=== PATIENT | female | born 1970 | race Caucasian/White ===

== ENCOUNTER 2025-02-03 23:08 | Emergency (ER) | payer SELFPAY ==
--- OUTSIDE RECORDS SUMMARY | 2025-02-03 23:36 | XMS REPORT | Continuity of Care Document ---
Author Name Unknown Address [address] [facility] [place] [address] Organization [facility] [place] Address [address] [facility] [address] [place] [address] Care Team Providers Care Marketing Research Coordinator Name Role Phone PCP, PATIENT DOES NOT HAVE A Primary Care Physic segun Unavailable Addison Rocha Attending Clinician Unavailable ELZA PATEL Attending Clinician Unavailable CHRETIEN_F Attending Clinician Unavailable Benton Monroy Attending Clinician [phone] PATRIZIA HOWARD Attending Clinician Unavailable ELSA Attending Clinician Unavailable Addison Rocha Admitting Clinician Unavailable Physician, No Primary or Family Admitting Clinic segun Unavailable CHRETIEN_F Admitting Clinician Unavailable ELSA Admitting Clinician Unavailable Payers Payer Name Policy Type Policy Number Effective Date Expirati on Date Source [place] [id number] 2021 00:00:00 2021 00:00:00 Allergies, Adverse Reactions, Alerts Allergy Name Allergy Type Status Severity Reaction(s) Onset Date Inactive Date Treating Clinician Comments Source No Known Allergie s DA Active U 11-22 00:00: 00 [facility] NO KNOWN ALLERGIE S Drug Class Active [facility] Social History Social Habit Start Date Stop Date Quantity Comments Source ASSERTION Possible [facility] Sexual orientation [facility] Sex 2025-01-16 23:55:02 2025-01-16 23:55:02 Female (finding) [facility] Sex assigned at 1970 00:00:00 1970 00:00:00 [facility] Smoking Status Start Date Stop Date Source Current Every Day Smoker [facility] Medications Ordered Medication Name Filled Medication Name Start Date Stop Date Current Medication? Ordering Clinician Indication Dosage Frequency Signature (SIG) Comments Components Source albuterol sulfate HFA 90 mcg/actuati on aerosol inhaler Take 2 puffs Q4-6 daily albuterol sulfate HFA 90 mcg/actuati on aerosol inhaler Take 2 puffs Q4-6 daily No albuterol sulfate HFA 90 mcg/actuat ion aerosol inhaler Take 2 puffs Q4-6 daily [facility] amoxicillin 875 mg-potassiu m clavulanate 125 mg tablet Take 1 tablet every 12 hours by oral route for 10 days. amoxicillin 875 mg-potassiu m clavulanate 125 mg tablet Take 1 tablet every 12 hours by oral route for 10 days. No 1 Q12H amoxicilli n 875 mg-potassi um clavulanat e 125 mg tablet Take 1 tablet every 12 hours by oral route for 10 days. [facility] bupropion HCl SR 150 mg tablet,12 hr sustained-r elease Take 1 tablet BID PO bupropion HCl SR 150 mg tablet,12 hr sustained-r elease Take 1 tablet BID PO No bupropion HCl SR 150 mg tablet,12 hr sustained- release Take 1 tablet BID PO [facility] prednisone 10 mg tablet Take 1 tablet daily by mouth prednisone 10 mg tablet Take 1 tablet daily by mouth No prednisone 10 mg tablet Take 1 tablet daily by mouth [facility] Trelegy Ellipta 100 mcg-62.5 mcg-25 mcg powder for inhalation Inhale 1 puff every day Trelegy Ellipta 100 mcg-62.5 mcg-25 mcg powder for inhalation Inhale 1 puff every day No Trelegy Ellipta 100 mcg-62.5 mcg-25 mcg powder for inhalation Inhale 1 puff every day [facility] Vital Signs Vital Name Observation Time Observation Value Comments S ource BP Diastolic 2021-10-07 00:00:00 76 mm[Hg] [facility] Height 2021-10-07 00:00:00 64 [in_i] [facility] BMI (Body Mass Index) 2021-10-07 00:00:00 24.9 kg/m2 [facility] BP Systolic 2021-10-07 00:00:00 132 mm[Hg] [facility] Body Weight 2021-10-07 00:00:00 2320 [oz_av] [facility] Encounters Start Date/Time End Date/Time Encounter Type Admission Type Attending Clinicians Care Facility Care Department Encounter ID Source 2023-06-07 11:15:01 Outpatient STLMLC STLMLC [id number] 2024-12-25 15:53:25 2024-12-25 15:53:25 Outpatient SFA SFA [id number] Gabriel Eduardo 2024-11-22 06:48:00 2024-11-29 12:31:00 Inpatient EM Addison Rocha HCAPM INTE.02 [id number] [facility] 2024-11-22 07:23:00 2024-11-22 07:23:00 Outpatient Addison Rocha HCACL LABO [id number] [facility] 2024-04-19 13:30:00 2024-04-19 13:30:00 Outpatient ELZA RIVERO [facility] [id number] [facility] 2024-04-12 14:30:00 2024-04-12 14:30:00 Outpatient ELZA RIVERO [facility] [id number] [facility] 2024-04-05 14:15:00 2024-04-05 14:15:00 Outpatient ELZA RIVERO [facility] [id number] [facility] 2021-10-07 00:00:00 2021-10-07 00:00:00 Outpatient Benton Monroy [facility] [id number] 2021-10-07 00:00:00 2021-10-07 00:00:00 Benton Monroy, DO: [address], [place] [phone] , Ph. [facility] [place] [facility], DR[address] MONROY [id number] [facility] 2021-10-07 00:00:00 2021-10-07 00:00:00 Outpatient Benton Monroy [facility] [id number] 2021-09-27 11:00:00 2021-09-27 11:00:00 Outpatient R [facility] [id number] [facility] 2021-09-27 11:00:00 2021-09-27 11:00:00 Outpatient R PATRIZIA HOWARD [facility] [id number] [facility] Results Test Description Test Time Test Comments Results Result Co mments Source CBC W/AUTO [id number] 15:07:00* Test Item Value Reference Range Interpretation Comme nts WHITE BLOOD CELL (test code = WBC) 12.1 K/mm3 3.5-11.0 H RED BLOOD CELL (test code = RBC) 4.91 M/mm3 4.70-6.10 N HEMOGLOBIN (test code = HGB) 15.0 G/DL 10.4-14.9 H HEMATOCRIT (test code = HCT) 48.8 % 31.5-44.1 H MEAN CELL VOLUME (test code = MCV) 99.4 Fl 84.5-98.6 H MEAN CELL HGB (test code = MCH) 30.5 pg 27.0-34.2 N MEAN CELL HGB CONCETRATION (test code = MCHC) 30.7 G/DL 31.5-34.0 L RED CELL DISTRIBUTION WIDTH (test code = RDW) 13.0 SD 11.5-14.5 N PLATELET COUNT (test code = PLT) 232 K/mm3 150-450 N MEAN PLATELET VOLUME (test c ode = MPV) 9.50 fL 7.0-10.5 N NEUTROPHIL % (test code = NT%) 87.1 % 40-76 H IMMATURE GRANULOCYTE % (test code = IG%) 2.3 % 0.0-5.0 N LYMPHOCYTE % (test code = LY%) 7.3 % 20.5-51.1 L MONOCYTE % (test code = MO%) 3.0 % 1.7-9.3 N EOSINOPHIL % (test code = EO%) 0.0 % 0.0-6.0 N BASOPHIL % (test code = BA%) 0.3 % 0.0-2.0 N NUCLEATED RBC % (test code = NRBC%) 0.0 /100WBC% 0.0-1.0 N NEUTROPHIL # (test code = NT#) 10.6 K/mm3 1.8-7.6 H IMMATURE GRANULOCYTE # (test code = IG#) 0.28 x10 3/uL 0.00-0.03 H LYMPHOCYTE # (test code = LY#) 0.9 K/mm3 0.6-3.2 N MONOCYTE # (test code = MO#) 0.4 K/mm3 0.3-1.1 N EOSINOPHIL # (test code = EO#) 0.0 K/mm3 0.0-0.4 N BASOPHIL # (test code = BA#) 0.0 K/mm3 0.0-0.1 N NUCLEATED RBC # (test code = NRBC#) 0.0 K/mm3 0.0-0.1 N MANUAL DIFF REQUIRED (test c ode = MDIFF) NO DIFF/SCN CRITERIA PaO2/[id number] 13:49:00* Test Item Value Reference Range Interpretation Comme nts PaO2/FiO2 (test code = [id number]) 172.2 mm/Hg See_Comment L [Automated mess age] The system which generated this result transmitted reference range: 200. The reference range was not used to interpret this result as normal/abnormal. [id number] 13:49:00* Test Item Value Reference Range Interpretation Comme nts ARTERIAL BLOOD GAS PH (test code = PHA) 7.42 pH units 7.35-7.45 N ARTERIAL BLOOD GAS PCO2 (test code = PCO2A) 63 mmHg 35-45 H ARTERIAL BLOOD GAS PO2 (test code = PO2A) 62 mmHg 80-100 L BICARBONATE TOTAL HCO3 (test code = HCO3) 40.1 mmol/L 22.0-26.0 H BASE EXCESS (test code = ALEXANDRE) 12.3 mmol/L -3.0-3.0 H ABG O2 SATURATION (test code = SATA) 93 % 90-100 N FIO2 (test code = FIO2A) 36 % (calc) 21-100 N ABG DELIVERY (test code = IRVIN) N/C Descript ABG SITE (test code = SITEA) Left Radial ARTKIT DESCRIPTION MODIFIED CHAI'S (test code = MODALL) Yes Circ.CHK POSITIVE TOTAL HGB (test code = THB) 16.4 GRAM/DL 12.0-18.0 N HGB O2 SAT (test code = HBOSAT) 91.9 % (linda) 95.0-100.0 L CARBOXYHEMOGLOBIN (test code = HOHGBT) 0.7 % 0.5-1.5 N METHEMOGLOBIN (test code = METHGB) 0.1 % 0.0-0.0 H COMPREHENSIVE METABOLIC [id number] 12:25:00* Test Item Value Reference Range Interpretation Comme nts SODIUM (test code = NA) 144 mmol/L 136-145 N POTASSIUM (test code = K) 4.5 mmol/L 3.4-5.0 N CHLORIDE (test code = CL) 100 mmol/L 98-107 N CARBON DIOXIDE (test code = CO2) 45 mmol/L 21-32 HH RESULTS CALLED TO KARINA.ROBEAD BACK & CONFIRMED? [facility] LYolandaLAB.B 11/25/24 1215 mmol/L ANION GAP (test code = GAP) -1 GAP calc 4-15 L GLUCOSE (test code = GLU) 130 MG/DL 70-110 H BLOOD UREA NITROGEN (test code = BUN) 22 MG/DL 7-18 H GLOMERULAR FILTRATION RATE (test code = GFR) >=60 max estimate estGFR >60 The Glomerular Filtration Rate is a calculated parameterbased on serum Creatinine, patient age and sex. GFR valuesless than 60 mL/min/1.73 square meters are indicative ofChronic Kidney Disease. Values less than 15 mL/min/1.73square meters indicate Kidney failure. The calculation forGFR is based on the CKD-EPI (2020) calculation. This formulais race indifferent and is the recommended formula for GFRby the National Kidney Foundation for Adults.The GFR will not calculate if the sex is unknown or if thepatient's age is <18 years. CREATININE (test code = CREAT) 0.6 MG/DL 0.6-1.0 N TOTAL PROTEIN (test code = PROT) 6.4 G/DL 6.4-8.2 N ALBUMIN (test code = ALB) 2.5 G/DL 3.4-5.0 L GLOBULIN (test code = GLOB) 3.9 GM/dL ALBUMIN/GLOBULIN RATIO (test code = A/G) 0.6 RATIO 1.2-2.2 L CALCIUM (test code = CA) 9.7 MG/DL 8.5-10.1 N BILIRUBIN TOTAL (test code = BILT) 0.3 MG/DL 0.0-1.0 N SGOT/AST (test code = AST) 25 Unit/L 15-37 N SGPT/ALT (test code = ALT) 84 Unit/L 30-65 H ALKALINE PHOSPHATASE TOTAL (test code = ALKP) 65 Unit/L 50-136 N Vancomycin [id number] 10:01:00* Test Item Value Reference Range Interpretation Comme nts Vancomycin AUC2 (test code = VANCAUC2) 6.5 mcg/mL 10-20 L Vancomycin [id number] 01:32:00* Test Item Value Reference Range Interpretation Comme nts Vancomycin AUC1 (test code = VANCAUC1) 23.0 mcg/mL 20-60 N [id number] 01:25:00* Test Item Value Reference Range Interpretation Comme nts CREATININE (test code = CREAT) 0.6 MG/DL 0.6-1.0 N PaO2/[id number] 09:36:00* Test Item Value Reference Range Interpretation Comme nts PaO2/FiO2 (test code = [id number]) 159.0 mm/Hg See_Comment L [Automated mess age] The system which generated this result transmitted reference range: 200. The reference range was not used to interpret this result as normal/abnormal. [id number] 09:36:00* Test Item Value Reference Range Interpretation Comme nts ARTERIAL BLOOD GAS PH (test code = PHA) 7.22 pH units 7.35-7.45 LL ARTERIAL BLOOD GAS PCO2 (test code = PCO2A) 82 mmHg 35-45 HH ARTERIAL BLOOD GAS PO2 (test code = PO2A) 159 mmHg 80-100 H BICARBONATE TOTAL HCO3 (test code = HCO3) 32.8 mmol/L 22.0-26.0 H BASE EXCESS (test code = ALEXANDRE) 2.0 mmol/L -3.0-3.0 N ABG O2 SATURATION (test code = SATA) 99 % 90-100 N FIO2 (test code = FIO2A) 100 % (calc) 21-100 N ABG DELIVERY (test code = IRVIN) NRBMASK Descript ABG SITE (test code = SITEA) Right Radial ARTKIT DESCRIPTION MODIFIED CHAI'S (test code = MODALL) Yes Circ.CHK POSITIVE TOTAL HGB (test code = THB) 16.3 GRAM/DL 12.0-18.0 N HGB O2 SAT (test code = HBOSAT) 98.1 % (linda) 95.0-100.0 N CARBOXYHEMOGLOBIN (test code = HOHGBT) 0.5 % 0.5-1.5 N METHEMOGLOBIN (test code = METHGB) 0.4 % 0.0-0.0 H PaO2/[id number] 09:36:00* Test Item Value Reference Range Interpretation Comme nts PaO2/FiO2 (test code = [id number]) 176.0 mm/Hg See_Comment L [Automated mess age] The system which generated this result transmitted reference range: 200. The reference range was not used to interpret this result as normal/abnormal. [id number] 09:36:00* Test Item Value Reference Range Interpretation Comme nts ARTERIAL BLOOD GAS PH (test code = PHA) 7.32 pH units 7.35-7.45 L ARTERIAL BLOOD GAS PCO2 (test code = PCO2A) 53 mmHg 35-45 H ARTERIAL BLOOD GAS PO2 (test code = PO2A) 88 mmHg 80-100 N BICARBONATE TOTAL HCO3 (test code = HCO3) 26.8 mmol/L 22.0-26.0 H BASE EXCESS (test code = ALEXANDRE) -0.5 mmol/L -3.0-3.0 N ABG O2 SATURATION (test code = SATA) 96 % 90-100 N FIO2 (test code = FIO2A) 50 % (calc) 21-100 N ABG DELIVERY (test code = IRVIN) NIV Descript ABG VENT MODE (test code = MODEA) BiPAP Descript Vent Mode ABG PEEP (test code = PEEPA) 8.0 cm H20 0.0-99.9 ABG PRESSURE SUPPORT (test code = PSABG) 14.0 cm H20 See_Comment [Automated message] The system which generated this result transmitted reference range: 0-. The reference range was not used to interpret this result as normal/abnormal. ABG SITE (test code = SITEA) Right Radial ARTKIT DESCRIPTION MODIFIED CHAI'S (test code = MODALL) Yes Circ.CHK POSITIVE TOTAL HGB (test code = THB) 18.3 GRAM/DL 12.0-18.0 H HGB O2 SAT (test code = HBOSAT) 95.7 % (linda) 95.0-100.0 N CARBOXYHEMOGLOBIN (test code = HOHGBT) 0.2 % 0.5-1.5 L METHEMOGLOBIN (test code = METHGB) 0.3 % 0.0-0.0 H UA RFLX MICR CULT IF [id number] 06:22:00* Test Item Value Reference Range Interpretation Comme nts UA COLOR (test code = COLU) Yellow YELLOW UA APPEARANCE (test code = APPU) CLEAR CLEAR UA GLUCOSE DIPSTICK (test code = DGLUU) 1+ mg/dL NEGATIVE UA BILIRUBIN DIPSTICK (test code = BILU) Negative NEGATIVE UA KETONE DIPSTICK (test code = KETU) Negative NEGATIVE UA SPECIFIC GRAVITY (test code = SGU) >=1.030 1.005-1.015 A UA BLOOD DIPSTICK (test code = APOLLO) Negative NEGATIVE UA PH DIPSTICK (test code = OLIVIA) 6.0 5.0-7.0 UA PROTEIN DIPSTICK (test code = PROU) 2+ mg/dL NEGATIVE UA UROBILINIOGEN DIPSTICK (test code = URO) 0.2 EU/dL See_Comment [Automated message] The system which generated this result transmitted reference range: <2.0 EU/dL. The reference range was not used to interpret this result as normal/abnormal. UA NITRITE DIPSTICK (test code = ALBA) Negative NEGATIVE UA LEUKOCYTE ESTERASE DIPSTICK (test code = LEUU) Negative NEGATIVE UA WBC (test code = WBCU) 1-3 #WBC/HPF 0-3 UA RBC (test code = RBCU) 1-3 #RBC/HPF 0-3 UA BACTERIA (test code = BACU) TRACE /HPF NONE-TRACE UA SQUAMOUS CELLS (test code = SQU) TRACE /HPF NONE UA TRIPLE PHOSPHATE CRYSTALS (test code = TRPHOSU) TRACE /HPF NONE-TRACE UA AMORPHOUS SEDIMENT (test code = AMORU) TRACE NONE SEEN UA CULTURE NEEDED? (test code = UACULT) NO, WBC<10 Criteria Culture CHK Indication for culture: Dysuria/FrequencySOURCE OF URINE: CLEAN CATCHDRUGS OF ABUSE SCREEN [id number] 05:56:00* Test Item Value Reference Range Interpretation Comme nts URN COCAINE (test code = COCAURN) NEGATIVE SCcutoff See_Comment UNCONFIRMED SCREENING RESULTS SHOULD NOT BE USED FORNON-MEDICAL PURPOSES. [Automated message] The system which generated this result transmitted reference range: <300 NG/ML. The reference range was not used to interpret this result as normal/abnormal. URN CANNABINOIDS (test code = CANNABURN) NEGATIVE SCcutoff See_Comment UNCONFIRMED SCREENING RESULTS SHOULD NOT BE USED FORNON-MEDICAL PURPOSES. [Automated message] The system which generated this result transmitted reference range: <50 NG/ML. The reference range was not used to interpret this result as normal/abnormal. URN AMPHETAMINE (test code = AMPHETURN) NEGATIVE SCcutoff See_Comment UNCONFIRMED SCREENING RESULTS SHOULD NOT BE USED FORNON-MEDICAL PURPOSES. [Automated message] The system which generated this result transmitted reference range: <1000 NG/ML. The reference range was not used to interpret this result as normal/abnormal. URN BARBITURATE (test code = BARBITURN) NEGATIVE SCcutoff See_Comment UNCONFIRMED SCREENING RESULTS SHOULD NOT BE USED FORNON-MEDICAL PURPOSES. [Automated message] The system which generated this result transmitted reference range: <200 NG/ML. The reference range was not used to interpret this result as normal/abnormal. URN BENZODIAZEPINE (test code = BENZOURN) NEGATIVE SCcutoff See_Comment UNCONFIRMED SCREENING RESULTS SHOULD NOT BE USED FORNON-MEDICAL PURPOSES. [Automated message] The system which generated this result transmitted reference range: <200 NG/ML. The reference range was not used to interpret this result as normal/abnormal. URN OPIATES (test code = OPIATURN) NEGATIVE SCcutoff See_Comment UNCONFIRMED SCREENING RESULTS SHOULD NOT BE USED FORNON-MEDICAL PURPOSES. [Automated message] The system which generated this result transmitted reference range: <300 NG/ML. The reference range was not used to interpret this result as normal/abnormal. URN PHENCYCLIDINE (PCP) (test code = PHENCURN) NEGATIVE SCcutoff See_Comment UNCONFIRMED SCREENING RESULTS SHOULD NOT BE USED FORNON-MEDICAL PURPOSES. [Automated message] The system which generated this result transmitted reference range: <25 NG/ML. The reference range was not used to interpret this result as normal/abnormal. URN METHADONE (test code = METHAURN) NEGATIVE SCcutoff See_Comment UNCONFIRMED SCREENING RESULTS SHOULD NOT BE USED FORNON-MEDICAL PURPOSES. [Automated message] The system which generated this result transmitted reference range: <300 NG/ML. The reference range was not used to interpret this result as normal/abnormal. COMPREHENSIVE METABOLIC [id number] 17:47:00* Test Item Value Reference Range Interpretation Comme nts SODIUM (test code = NA) 145 mmol/L 136-145 N POTASSIUM (test code = K) 5.0 mmol/L 3.4-5.0 N CHLORIDE (test code = CL) 105 mmol/L 98-107 N CARBON DIOXIDE (test code = CO2) 37 mmol/L 21-32 H ANION GAP (test code = GAP) 3 GAP calc 4-15 L GLUCOSE (test code = GLU) 212 MG/DL 70-110 H BLOOD UREA NITROGEN (test code = BUN) 32 MG/DL 7-18 H GLOMERULAR FILTRATION RATE (test code = GFR) >=60 max estimate estGFR >60 The Glomerular Filtration Rate is a calculated parameterbased on serum Creatinine, patient age and sex. GFR valuesless than 60 mL/min/1.73 square meters are indicative ofChronic Kidney Disease. Values less than 15 mL/min/1.73square meters indicate Kidney failure. The calculation forGFR is based on the CKD-EPI (202) calculation. This formulais race indifferent and is the recommended formula for GFRby the National Kidney Foundation for Adults.The GFR will not calculate if the sex is unknown or if thepatient's age is <18 years. CREATININE (test code = CREAT) 0.8 MG/DL 0.6-1.0 N TOTAL PROTEIN (test code = PROT) 6.9 G/DL 6.4-8.2 N ALBUMIN (test code = ALB) 2.5 G/DL 3.4-5.0 L GLOBULIN (test code = GLOB) 4.4 GM/dL ALBUMIN/GLOBULIN RATIO (test code = A/G) 0.6 RATIO 1.2-2.2 L CALCIUM (test code = CA) 9.7 MG/DL 8.5-10.1 N BILIRUBIN TOTAL (test code = BILT) 0.2 MG/DL 0.0-1.0 N SGOT/AST (test code = AST) 46 Unit/L 15-37 H SGPT/ALT (test code = ALT) 70 Unit/L 30-65 H ALKALINE PHOSPHATASE TOTAL (test code = ALKP) 69 Unit/L 50-136 N [id number] 17:47:00* Test Item Value Reference Range Interpretation Comme nts PHOSPHOROUS (test code = PHOS) 2.7 MG/DL 2.5-4.9 N [id number] 17:47:00* Test Item Value Reference Range Interpretation Comme nts MAGNESIUM (test code = MAG) 2.0 MG/DL 1.8-2.4 N CBC W/AUTO [id number] 13:43:00* Test Item Value Reference Range Interpretation Comme nts WHITE BLOOD CELL (test code = WBC) 7.8 K/mm3 3.5-11.0 N RED BLOOD CELL (test code = RBC) 5.00 M/mm3 4.70-6.10 N HEMOGLOBIN (test code = HGB) 15.2 G/DL 10.4-14.9 H HEMATOCRIT (test code = HCT) 49.9 % 31.5-44.1 H MEAN CELL VOLUME (test code = MCV) 99.8 Fl 84.5-98.6 H MEAN CELL HGB (test code = MCH) 30.4 pg 27.0-34.2 N MEAN CELL HGB CONCETRATION (test code = MCHC) 30.5 G/DL 31.5-34.0 L RED CELL DISTRIBUTION WIDTH (test code = RDW) 13.6 SD 11.5-14.5 N PLATELET COUNT (test code = PLT) 208 K/mm3 150-450 N MEAN PLATELET VOLUME (test c ode = MPV) 9.80 fL 7.0-10.5 N NEUTROPHIL % (test code = NT%) 81.8 % 40-76 H IMMATURE GRANULOCYTE % (test code = IG%) 0.9 % 0.0-5.0 N LYMPHOCYTE % (test code = LY%) 11.6 % 20.5-51.1 L MONOCYTE % (test code = MO%) 5.4 % 1.7-9.3 N EOSINOPHIL % (test code = EO%) 0.0 % 0.0-6.0 N BASOPHIL % (test code = BA%) 0.3 % 0.0-2.0 N NUCLEATED RBC % (test code = NRBC%) 0.0 /100WBC% 0.0-1.0 N NEUTROPHIL # (test code = NT#) 6.4 K/mm3 1.8-7.6 N IMMATURE GRANULOCYTE # (test code = IG#) 0.07 x10 3/uL 0.00-0.03 H LYMPHOCYTE # (test code = LY#) 0.9 K/mm3 0.6-3.2 N MONOCYTE # (test code = MO#) 0.4 K/mm3 0.3-1.1 N EOSINOPHIL # (test code = EO#) 0.0 K/mm3 0.0-0.4 N BASOPHIL # (test code = BA#) 0.0 K/mm3 0.0-0.1 N NUCLEATED RBC # (test code = NRBC#) 0.0 K/mm3 0.0-0.1 N MANUAL DIFF REQUIRED (test c ode = MDIFF) NO DIFF/SCN CRITERIA TROP-I HIGH [id number] 21:59:00* Test Item Value Reference Range Interpretation Comme nts TROP-I HIGH SENSITIVITY (test code = TROPIHS) 77.5 ng/L 0-54 H CAUTION: Units o f the current test methodology (ng/L) differfrom the prior test methodology (ng/mL) by a factor of 1000. 99th Percentile Upper Reference Limit (URL):Females: 54 ng/LMales: 79 ng/L In order to distinguish acute elevations of high sensitivitytroponin from other clinical conditions, the FourthUniversal Definition of Myocardial Infarction stressesclinical assessment and the demonstration of a rise and/orfall in serial troponin results above the URL. Results from different methodologies should not be comparedto one another as quantitative results and URLs may varyby method. ARTERIAL BLOOD [id number] 21:13:00* Test Item Value Reference Range Interpretation Comme nts ARTERIAL BLOOD GAS PH (test code = PHA) 7.22 pH units 7.35-7.45 LL ARTERIAL BLOOD GAS PCO2 (test code = PCO2A) 79 mmHg 35-45 HH ARTERIAL BLOOD GAS PO2 (test code = PO2A) 81 mmHg 80-100 N BICARBONATE TOTAL HCO3 (test code = HCO3) 31.6 mmol/L 22.0-26.0 H BASE EXCESS (test code = ALEXANDRE) 1.2 mmol/L -3.0-3.0 N ABG O2 SATURATION (test code = SATA) 93 % 90-100 N FIO2 (test code = FIO2A) 70 % (calc) 21-100 N ABG DELIVERY (test code = IRVIN) N/C Descript ABG SITE (test code = SITEA) Left Radial ARTKIT DESCRIPTION MODIFIED CHAI'S (test code = MODALL) Yes Circ.CHK POSITIVE PaO2/[id number] 21:13:00* Test Item Value Reference Range Interpretation Comme [facility] PaO2/FiO2 (test code = [id number]) 115.7 mm/Hg See_Comment L [Automated mess age] The system which generated this result transmitted reference range: 200. The reference range was not used to interpret this result as normal/abnormal. COVID 19 Asymptomatic IH [id number] 17:13:00* Test Item Value Reference Range Interpretation Comme nts COVID 19 Asymptomatic IH AG (test code = COVNONPUIAG) NEGATIVE Negative Per housefellow , negative results should be treated aspresumptive and, if inconsistent with clinical signs andsymptoms or necessary for patient management, should betested with an alternative molecular assay. Negative resultsdo not preclude SARS-CoV-2 infection and should not be usedas the sole basis for patient management decisions. Negative results should be considered in the context of apatient's recent exposures, history, presence of clinicalsigns and symptoms consistent with COVID-19. TROP-I HIGH [id number] 10:40:00* Test Item Value Reference Range Interpretation Comme nts TROP-I HIGH SENSITIVITY (test code = TROPIHS) 180.1 ng/L 0-54 HH RESULTS CALLED Sahra LORENZOREAD BACK & CONFIRMED? [facility] 11/22/24 1031CAUTION: Units of the current test methodology (ng/L) differfrom the prior test methodology (ng/mL) by a factor of 1000. 99th Percentile Upper Reference Limit (URL):Females: 54 ng/LMales: 79 ng/L In order to distinguish acute elevations of high sensitivitytroponin from other clinical conditions, the FourthUniversal Definition of Myocardial Infarction stressesclinical assessment and the demonstration of a rise and/orfall in serial troponin results above the URL. Results from different methodologies should not be comparedto one another as quantitative results and URLs may varyby method. LACTIC [id number] 09:26:00* Test Item Value Reference Range Interpretation Comme nts LACTIC ACID (test code = LACT) 1.6 mmol/L 0.4-1.9 N CBC W/AUTO [id number] 07:01:00* Test Item Value Reference Range Interpretation Comme nts WHITE BLOOD CELL (test code = WBC) 12.0 K/mm3 3.5-11.0 H RED BLOOD CELL (test code = RBC) 5.55 M/mm3 4.70-6.10 N HEMOGLOBIN (test code = HGB) 17.1 G/DL 10.4-14.9 H HEMATOCRIT (test code = HCT) 54.1 % 31.5-44.1 H MEAN CELL VOLUME (test code = MCV) 97.5 Fl 84.5-98.6 N MEAN CELL HGB (test code = MCH) 30.8 pg 27.0-34.2 N MEAN CELL HGB CONCETRATION (test code = MCHC) 31.6 G/DL 31.5-34.0 N RED CELL DISTRIBUTION WIDTH (test code = RDW) 14.0 SD 11.5-14.5 N PLATELET COUNT (test code = PLT) 220 K/mm3 150-450 N MEAN PLATELET VOLUME (test code = MPV) 10.10 fL 7.0-10.5 N NEUTROPHIL % (test code = NT%) 94.2 % 40-76 H IMMATURE GRANULOCYTE % (test code = IG%) 0.3 % 0.0-5.0 N LYMPHOCYTE % (test code = LY%) 3.6 % 20.5-51.1 L MONOCYTE % (test code = MO%) 1.8 % 1.7-9.3 N EOSINOPHIL % (test code = EO%) 0.0 % 0.0-6.0 N BASOPHIL % (test code = BA%) 0.1 % 0.0-2.0 N NUCLEATED RBC % (test code = NRBC%) 0.0 /100WBC% 0.0-1.0 N NEUTROPHIL # (test code = NT#) 11.3 K/mm3 1.8-7.6 H IMMATURE GRANULOCYTE # (test code = IG#) 0.04 x10 3/uL 0.00-0.03 H LYMPHOCYTE # (test code = LY#) 0.4 K/mm3 0.6-3.2 L MONOCYTE # (test code = MO#) 0.2 K/mm3 0.3-1.1 L EOSINOPHIL # (test code = EO#) 0.0 K/mm3 0.0-0.4 N BASOPHIL # (test code = BA#) 0.0 K/mm3 0.0-0.1 N NUCLEATED RBC # (test code = NRBC#) 0.0 K/mm3 0.0-0.1 N MANUAL DIFF REQUIRED (test code = MDIFF) NO DIFF/SCN CRITERIA SLIDE REVIEW CONSISTANT WITH AUTO DIFFERENTIAL. LACTIC [id number] 06:50:00* Test Item Value Reference Range Interpretation Comme nts LACTIC ACID (test code = LACT) 2.5 mmol/L 0.4-1.9 HH RESULTS CALLED Sahra ZENGREAD BACK & CONFIRMED? YESVERONICA L.[facility] 11/22/24 0645 BASIC METABOLIC [id number] 06:46:00* Test Item Value Reference Range Interpretation Comme nts SODIUM (test code = NA) 143 mmol/L 136-145 N POTASSIUM (test code = K) 5.0 mmol/L 3.4-5.0 N CHLORIDE (test code = CL) 101 mmol/L 98-107 N CARBON DIOXIDE (test code = CO2) 30 mmol/L 21-32 N ANION GAP (test code = GAP) 12 GAP calc 4-15 N GLUCOSE (test code = GLU) 190 MG/DL 70-110 H BLOOD UREA NITROGEN (test code = BUN) 38 MG/DL 7-18 H GLOMERULAR FILTRATION RATE (test code = GFR) 44 estGFR >60 L The Glomerular Filtration Rate is a calculated parameterbased on serum Creatinine, patient age and sex. GFR valuesless than 60 mL/min/1.73 square meters are indicative ofChronic Kidney Disease. Values less than 15 mL/min/1.73square meters indicate Kidney failure. The calculation forGFR is based on the CKD-EPI (2020) calculation. This formulais race indifferent and is the recommended formula for GFRby the National Kidney Foundation for Adults.The GFR will not calculate if the sex is unknown or if thepatient's age is <18 years. CREATININE (test code = CREAT) 1.4 MG/DL 0.6-1.0 H CALCIUM (test code = CA) 9.4 MG/DL 8.5-10.1 N HEPATIC FUNCTION [id number] 06:46:00* Test Item Value Reference Range Interpretation Comme nts TOTAL PROTEIN (test code = PROT) 7.8 G/DL 6.4-8.2 N ALBUMIN (test code = ALB) 2.9 G/DL 3.4-5.0 L BILIRUBIN TOTAL (test code = BILT) 0.5 MG/DL 0.0-1.0 N BILIRUBIN DIRECT (test code = BILD) 0.2 MG/DL 0.0-0.3 N BILIRUBIN INDIRECT (test cod e = BILIND) 0.30 MG/DL 0.2-1.2 N SGOT/AST (test code = AST) 32 Unit/L 15-37 N SGPT/ALT (test code = ALT) 49 Unit/L 30-65 N ALKALINE PHOSPHATASE TOTAL ( test code = ALKP) 83 Unit/L 50-136 N [id number] 06:46:00* Test Item Value Reference Range Interpretation Comme nts LIPASE (test code = LIP) 25 Unit/L 13-75 N NT PRO-BRAIN NATRIURETIC [id number] 06:46:00* Test Item Value Reference Range Interpretation Comme nts NT PRO-BRAIN NATRIURETIC PEP TI (test code = PROBNP) 6560 PG/ML 0-100 H TROP-I HIGH [id number] 06:46:00* Test Item Value Reference Range Interpretation Comme nts TROP-I HIGH SENSITIVITY (test code = TROPIHS) 352.2 ng/L 0-54 HH RESULTS CALLED Sahra ZENGREAD BACK & CONFIRMED? [facility] 11/22/24 0645CAUTION: Units of the current test methodology (ng/L) differfrom the prior test methodology (ng/mL) by a factor of 1000. 99th Percentile Upper Reference Limit (URL):Females: 54 ng/LMales: 79 ng/L In order to distinguish acute elevations of high sensitivitytroponin from other clinical conditions, the FourthUniversal Definition of Myocardial Infarction stressesclinical assessment and the demonstration of a rise and/orfall in serial troponin results above the URL. Results from different methodologies should not be comparedto one another as quantitative results and URLs may varyby method. PROTHROMBIN [id number] 05:55:00* Test Item Value Reference Range Interpretation Comme nts PT PATIENT (test code = PTP) 12.0 SECONDS 9.3-12.9 N INTERNATIONAL NORMAL RATIO (test code = INR) 1.09 INR Unit 0.8-1.2 N TARGET INR BY INDICATION Indication INR1. Prophylaxis of venous thrombosis 2.0 - 3.0 (orthopedic surgery), Prophylaxis of venous thrombosis (other than high-risk surgery), Treatment of Deep Vein Thrombosis/Pulmonary Embolism, Prevention of systemic embolism - Tissue heart valves, Acute Myocardial Infarction (to prevent systemic embolism), Valvular heart disease, Acute Myocardial Infarction (to prevent systemic embolism), Valvular heart disease, Atrial Fibrillation, Bileaflet mechanical valve in aortic position.2. Mechanical prosthetic valves (high risk), 2.5 - 3.5 Presence of Lupus Anticoagulant or Antiphospholipid Antibodies, Prevention of systemic embolism - Acute Myocardial Infarction (to prevent recurrent infarct). THROMBOPLASTIN TIME [id number] 05:55:00* Test Item Value Reference Range Interpretation Comme nts THROMBOPLASTIN TIME PARTIAL (test code = PTT) 37.9 SECONDS 26-35 H Notes Date/Time Note Provider Source 2024-11-29 12:52:00 [facility]) Pulmonology Progress Note REPORT#:[id number] REPORT STATUS: Signed REPORT INITIALIZATION DATE:11/29/24 TIME:125 PATIENT: CHEY NORMAN UNIT #: [id number] ROOM/BED: [place] [address] : 68 AGE: 54 SEX: F ATTEND: Addison Rocha MD ADM AUTHOR: Doron Espinosa MD REPT SERVICE DT/TIME: 11/29/24 1252 * ALL edits or amendments must be made on the electronic/computer document * Subjective Chief complaint: less SOB no distress On NC HPI: 54-year-old female with history of obesity and COPD 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 Eyes: Denies: discharge. Respiratory: Denies: hemoptysis. GI: Denies: diarrhea. Objective General VS/I O: Last Documented: Result Date Time Temp 36.8 11/29 1221 Pulse Ox 95 11/29 1000 B/P 121/56 11/29 1000 B/P Mean 80 11/29 1000 Pulse 82 11/29 1000 Resp 15 11/29 1000 O2 Delivery Nasal cannula 11/29 0830 O2 Flow Rate 4 11/29 0830 FiO2 28 11/28 0754 24 hour I O ending at 0700: 11/29 0700 11/28 1900 Intake Total 150 750 Output Total Balance 150 750 Intake, Oral 150 750 Number 1 Bowel Movements Number Voids 1 1 PATIENT WEIGHT: Weight (lb): Weight (oz): Weight (kg): 69.000 Medications: Active Meds + DC'd Last 24 Hrs Prednisone (predniSONE) 40 MG C BK PO (DCD) Calcium Carbonate (TUMS) 1,000 MG Q6H PRN PRN PO (DCD) Atorvastatin Calcium (LIPITOR) 40 MG BEDTIME PO (DCD) Clopidogrel Bisulfate (Plavix) 75 MG DAILY PO (DCD) Losartan Potassium (COZAAR) 12.5 MG DAILY PO (DCD) Verapamil HCl (CALAN) 40 MG Q8HR PO (DCD) Budesonide (PULMICORT RESPULES) 0.5 MG RTQ12H NEB (DCD) Formoterol Fumarate (PERFOROMIST) 20 MCG RTQ12H NEB (DCD) Acetaminophen (TYLENOL) 650 MG Q4H PRN PRN PO (DCD) Sterile Water (WATER FOR INJECTION) 0 ASDIR IV (DCD) Aspirin (ECOTRIN) 81 MG DAILY PO (DCD) Albuterol/Ipratropium (DUONEB) 3 ML RTQ4H NEB (DCD) Free Text Obj Notes Free Text Obj Notes: General appearance: Alert and oriented not in distress Head and neck. Normocephalic atraumatic, no pallor no jaundice, no goiter CV: S1-S2 regular rate and rhythm, no murmur Lungs: Decreased breathing sounds bilaterally Abdomen: Soft lax nontender, no masses Extremities: No lower limb edema, no cyanosis no clubbing Neurologic: Alert and oriented, intact cranial nerves, no focal deficit Skin: Intact, no lesions Lymphatic: No lymphadenopathy appreciated Diagnosis, Assessment Plan Free Text A P: 1. Acute hypoxic respiratory failure possible hypercapnia 2. Bilateral pneumonia 3. COPD with acute exacerbation 6.13 Seen and examined at bedside Evaluated initial workup Chest x-ray bilateral interstitial infiltrate consistent with atypical pneumonitis Will order CT chest without contrast IV steroids BID IV antibiotics Rocephin and azithromycin DuoNebs every 6 hours BiPAP intermittently and nightly Pulmicort and Perforomist Continue bronchodilators Continue antibiotics PTOT Assess home oxygen needs and needing BIPAP as outpatinet In am could be DC on trilogy inhaler and Medrol dose terry and Z terry smoking cessation counseling 6.19 Hemodynamic stable no distress Will taper steroids to prednisone 40 mg daily Trelegy inhaler upon discharge Has a equipment operator wage hand as outpatient Input output monitoring 6.20 Stable for DC from pulmonary standpoint Oxygen by nasal cannula assess needs Medrol Dosepak on discharge and Z-Terry Trelegy upon discharge patient has medications Follow-up with the equipment operator wage hand as outpatient at 1253 RPT #: [id number] END OF REPORT [facility] 2024-11-29 08:07:00 [facility] ([facility]) Hospitalist Progress Note REPORT#:[id number] REPORT STATUS: Signed REPORT INITIALIZATION DATE:11/29/24 TIME:08 PATIENT: CHEY NORMAN UNIT #: [id number] ROOM/BED: [place] [address] : 68 AGE: 54 SEX: F ATTEND: Addison Rocha MD ADM AUTHOR: Elissa Cook MD REPT SERVICE DT/TIME: 11/29/24 0807 * ALL edits or amendments must be made on the electronic/computer document * Subjective Chief complaint: SOB improving HPI: 54-year-old female with past medical history of COPD, hypertension, hyperlipidemia, CAD who was transferred from [facility] where she was diagnosed with COPD exacerbation and leukocytosis associated with hypoxic respiratory failure and shortness of breath. Patient states that she has a history of COPD and she was seen at [facility] where she was diagnosed with COPD exacerbation and white blood cell count was slightly elevated at 13.1. Patient was given breathing treatment as well as steroids and placed on BiPAP. Patient denies any pain. Patient was assessed in the ER and was placed on BiPAP and was admitted for further management Objective Physical Exam Head/Eyes: atraumatic, normocephalic ENT: dry mucosal membrane Neck: supple/no meningismus Cardiovascular: normal heart sounds, regular rate rhythm Respiratory: decreased breath sounds, rales Abdomen: soft, no distention Genitourinary: no bladder distention Extremities: decreased range of motion Musculoskeletal: decreased ROM Neuro/LAW OFFICE MANAGER: alert, no motor deficits, no sensory deficits Skin: dry, no rash Lymphatics: no lymphadenopathy Psychiatry: anxious Diagnosis, Assessment Plan Problem List/A P: 1. COPD exacerbation 2. Elevated troponin 3. Pneumonia 4. CASSANDRA (acute kidney injury) Free Text DxA P Notes Free text DxA P notes: Acute COPD exacerbation Monitor closely on telemetry Bronchodilators Continue steroids Robitussin as needed Continue home medications and titrate as needed NSTEMI Monitor under telemetry Cardiac enzymes trended Echocardiogram Started on aspirin statin Plavix Cardiology consult Continue beta-blockers Acute hypoxic respiratory failure Placed on BiPAP Will try to wean down oxygen requirement X-ray findings noted Monitor under telemetry Pulmonology consulted Possible pneumonitis Chest x-ray findings noted We will get a CT of the chest to rule out any other cause Diabetes Insulin sliding scale Accu-Chek before every meal and at bedtime Will get an A1c Hypertension Antihypertensives titrated Continue home medications and titrate as needed Hyperlipidemia We will get a lipid panel and A1c Continue statin GI/DVT prophylaxis Advanced directive full code echocardiogram noted EF is 50 to 54% with no regional wall motion abnormality and grade 1 diastolic dysfunction, RVSP of 41 Cardiology consulted Awaiting further clinical improvement Appreciate help from pulmonology Continue bronchodilators Awaiting further recommendation Patient is hypoxic on ambulation Need home O2 assessment Patient need oxygen to go home with Case management consult for home O2 Possible DC in a.m. at 1620 RPT #: [id number] END OF REPORT [facility] 2024-11-28 12:13:00 [facility] ([facility]) Hospitalist Discharge Summary REPORT#:[id number] REPORT STATUS: Signed REPORT INITIALIZATION DATE:11/28/24 TIME:1212 PATIENT: CHEY NORMAN UNIT #: [id number] ROOM/BED: [place] [address] : 68 AGE: 54 SEX: F ATTEND: Addison Rocha MD ADM AUTHOR: Elissa Cook MD REPT SERVICE DT/TIME: 11/28/24 1213 * ALL edits or amendments must be made on the electronic/computer document * General Information Problem List/A P: 1. COPD exacerbation 2. Elevated troponin 3. Pneumonia 4. CASSANDRA (acute kidney injury) Discharge date: 11/28/24 Discharge diagnosis: hypoxia Hospital course: This 54-year-old female, with a complex medical history including COPD, hypertension, hyperlipidemia, and coronary artery disease, was admitted for acute COPD exacerbation with associated hypoxic respiratory failure. She was initially transferred from [facility] after presenting with shortness of breath and a white blood cell count of 13.1, where she received bronchodilators, steroids, and BiPAP. Upon arrival at the emergency department, she continued on BiPAP and was admitted for comprehensive management.During her hospitalization, the patient was managed for multiple active issues. Her acute COPD exacerbation was treated with continued bronchodilators (DuoNebs, Pulmicort , Perforomist), IV steroids (tapered to prednisone 40 mg daily), and intermittent BiPAP. She also presented with possible pneumonitis, evidenced by bilateral interstitial infiltrates on chest X-ray, prompting a CT chest without contrast and sputum studies. Concurrently, she was diagnosed with a Non-ST Elevation Myocardial Infarction (NSTEMI), supported by trending cardiac enzymes. A cardiology consult was obtained, and she was initiated on aspirin, a statin, with continuation of her home beta-blockers. An echocardiogram revealed an ejection fraction of 50-54% with no regional wall motion abnormalities, grade 1 diastolic dysfunction, and an RVSP of 41.Her diabetes was managed with an insulin sliding scale, Accu-Chek before meals and at bedtime, and an A1c was ordered. Hypertension was addressed by titrating antihypertensives and continuing home medications, while hyperlipidemia management included a lipid panel and continued statin therapy. Prophylaxis for gastrointestinal issues and deep vein thrombosis was maintained throughout her stay.Pulmonology was consulted to assist with respiratory management, particularly given her hypoxia on ambulation and potential hypercapnia, in addition to findings consistent with bilateral pneumonia. Physical and occupational therapy was initiated to assess her home oxygen needs and determine the ongoing requirement for BiPAP as an outpatient. She remained hemodynamically stable throughout her hospitalization and was planned for discharge on a Trelegy inhaler and a Medrol dose pack, along with a Z-Terry, with outpatient follow-up with her established equipment operator wage hand. Case management was consulted to arrange home oxygen. The patient maintained full code status as per her advanced directive. Free Text DxA P Notes Free text DxA P notes: Acute COPD exacerbation Monitor closely on telemetry Bronchodilators Continue steroids Robitussin as needed Continue home medications and titrate as needed NSTEMI Monitor under telemetry Cardiac enzymes trended Echocardiogram Started on aspirin statin Plavix Cardiology consult Continue beta-blockers Acute hypoxic respiratory failure Placed on BiPAP Will try to wean down oxygen requirement X-ray findings noted Monitor under telemetry Pulmonology consulted Possible pneumonitis Chest x-ray findings noted We will get a CT of the chest to rule out any other cause Diabetes Insulin sliding scale Accu-Chek before every meal and at bedtime Will get an A1c Hypertension Antihypertensives titrated Continue home medications and titrate as needed Hyperlipidemia We will get a lipid panel and A1c Continue statin GI/DVT prophylaxis Advanced directive full code echocardiogram noted EF is 50 to 54% with no regional wall motion abnormality and grade 1 diastolic dysfunction, RVSP of 41 Cardiology consulted Awaiting further clinical improvement Appreciate help from pulmonology Continue bronchodilators Awaiting further recommendation Patient is hypoxic on ambulation Need home O2 assessment Patient need oxygen to go home with Case management consult for home O2 Possible DC in a.m. Med Rec Med Rec Discharge meds: Continue taking these medications: prednisoLONE (prednisoLONE) 5 MG TAB 10 MILLIGRAM ORAL DAILY. ALBUTEROL (ALBUTEROL HFA 90 MCG/ACT) 90 MCG INHALER 90 MICROGRAM ORAL PRN as needed for SHORTNESS OF BREATH IPRATROPIUM (ATROVENT 0.02%) 0.2 MG/ML (0.02 %) NEB 250 MICROGRAM INHALATION RT - EVERY 8 HOURS NEEDED. as needed for SHORTNESS OF BREATH Fluticasone/Umeclidin/Vilanter (TRELEGY ELLIPTA 100-62.5-25) 100-62.5 BLST.W.DEV 100 MICROGRAM ORAL DAILY. Start taking the following new medications: ATORVASTATIN (LIPITOR) 40 MG TAB 40 MILLIGRAM ORAL BEDTIME. Qty = 30 No Refills ASPIRIN (ASPIRIN) 81 MG TAB.CHEW 81 MILLIGRAM ORAL DAILY. Qty = 30 No Refills Objective Head/Eyes: atraumatic, normocephalic ENT: dry mucosal membrane Neck: supple/no meningismus Cardiovascular: normal heart sounds, regular rate rhythm Respiratory: decreased breath sounds, rales Abdomen: soft, no distention Genitourinary: no bladder distention Extremities: decreased range of motion Musculoskeletal: decreased ROM Neuro/LAW OFFICE MANAGER: alert, no motor deficits, no sensory deficits Skin: dry, no rash Lymphatics: no lymphadenopathy Psychiatry: anxious Free Text Obj Notes Free Text Obj Notes: Acute COPD exacerbation Monitor closely on telemetry Bronchodilators Continue steroids Robitussin as needed Continue home medications and titrate as needed NSTEMI Monitor under telemetry Cardiac enzymes trended Echocardiogram Started on aspirin statin Plavix Cardiology consult Acute hypoxic respiratory failure Placed on BiPAP Will try to wean down oxygen requirement X-ray findings noted Monitor under telemetry Pulmonology consulted Possible pneumonitis Chest x-ray findings noted We will get a CT of the chest to rule out any other cause Diabetes Insulin sliding scale Accu-Chek before every meal and at bedtime Will get an A1c Hypertension Antihypertensives titrated Continue home medications and titrate as needed Hyperlipidemia We will get a lipid panel and A1c Continue statin GI/DVT prophylaxis Advanced directive full code Discharge Instructions PCP Discharge to: Home/Self Care Additional Discharge Routines: PCP Follow-Up Diet: Resume Home Diet/Feeds Follow-up Appointments PCP follow-up: PCP: No Primary or Family Physician PCP follow up timeframe: In 5 days at 1734 RPT #: [id number] END OF REPORT [facility] 2024-11-28 11:58:00 [facility] Pulmonology Progress Note REPORT#:[id number] REPORT STATUS: Signed REPORT INITIALIZATION DATE:11/28/24 TIME:115 PATIENT: CHEY NORMAN UNIT #: [id number] ROOM/BED: [place] [address] : 68 AGE: 54 SEX: F ATTEND: Addison Rocha MD ADM AUTHOR: Doron Espinosa MD REPT SERVICE DT/TIME: 11/28/24 1158 * ALL edits or amendments must be made on the electronic/computer document * Subjective Chief complaint: less SOB no distress On NC HPI: 54-year-old female with history of obesity and COPD 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 Eyes: Denies: discharge. Respiratory: Denies: hemoptysis. GI: Denies: diarrhea. Objective General VS/I O: Last Documented: Result Date Time Temp 36.6 11/28 1141 Pulse Ox 94 11/28 1100 B/P 126/67 11/28 1100 B/P Mean 91 11/28 1100 Pulse 80 11/28 1100 Resp 23 11/28 1100 O2 Delivery Nasal cannula 11/28 0800 O2 Flow Rate 4 11/28 0800 FiO2 36 11/27 1850 24 hour I O ending at 0700: 11/28 0700 11/27 1900 Intake Total 150 350 Output Total 720 Balance 150 -370 Intake, Oral 150 350 Number 2 Bowel Movements Number 1 Incontinent Voids Output, Urine 720 PATIENT WEIGHT: Weight (lb): Weight (oz): Weight (kg): 69.000 Medications: Active Meds + DC'd Last 24 Hrs Prednisone (predniSONE) 40 MG C BK PO (UNV) Atorvastatin Calcium (LIPITOR) 40 MG BEDTIME PO Methylprednisolone Sodium Succinate (Solu-MEDROL) 40 MG Q12H IV (DCr) Clopidogrel Bisulfate (Plavix) 75 MG DAILY PO Losartan Potassium (COZAAR) 12.5 MG DAILY PO Verapamil HCl (CALAN) 40 MG Q8HR PO Budesonide (PULMICORT RESPULES) 0.5 MG RTQ12H NEB Formoterol Fumarate (PERFOROMIST) 20 MCG RTQ12H NEB Acetaminophen (TYLENOL) 650 MG Q4H PRN PRN PO Sterile Water (WATER FOR INJECTION) 0 ASDIR IV Aspirin (ECOTRIN) 81 MG DAILY PO Albuterol/Ipratropium (DUONEB) 3 ML RTQ4H NEB Free Text Obj Notes Free Text Obj Notes: General appearance: Alert and oriented not in distress Head and neck. Normocephalic atraumatic, no pallor no jaundice, no goiter CV: S1-S2 regular rate and rhythm, no murmur Lungs: Decreased breathing sounds bilaterally Abdomen: Soft lax nontender, no masses Extremities: No lower limb edema, no cyanosis no clubbing Neurologic: Alert and oriented, intact cranial nerves, no focal deficit Skin: Intact, no lesions Lymphatic: No lymphadenopathy appreciated Diagnosis, Assessment Plan Free Text A P: 1. Acute hypoxic respiratory failure possible hypercapnia 2. Bilateral pneumonia 3. COPD with acute exacerbation 6.13 Seen and examined at bedside Evaluated initial workup Chest x-ray bilateral interstitial infiltrate consistent with atypical pneumonitis Will order CT chest without contrast Sputum studies COVID testing IV steroids BID IV antibiotics Rocephin and azithromycin DuoNebs every 6 hours BiPAP intermittently and nightly Pulmicort and Perforomist Continue bronchodilators Continue antibiotics PTOT Assess home oxygen needs and needing BIPAP as outpatinet In am could be DC on trilogy inhaler and Medrol dose terry and Z terry smoking cessation counseling 6.19 Hemodynamic stable no distress Will taper steroids to prednisone 40 mg daily Trelegy inhaler upon discharge Has a equipment operator wage hand as outpatient Input output monitoring at 1159 RPT #: [id number] END OF REPORT [facility] 2024-11-27 14:50:00 [facility] Hospitalist Progress Note REPORT#:[id number] REPORT STATUS: Signed REPORT INITIALIZATION DATE:11/27/24 TIME:145 PATIENT: CHEY NORMAN UNIT #: [id number] ROOM/BED: [place] [address] : 68 AGE: 54 SEX: F ATTEND: Addison Rocha MD ADM AUTHOR: Addison Rocha MD REPT SERVICE DT/TIME: 11/27/24 1450 * ALL edits or amendments must be made on the electronic/computer document * Subjective Chief complaint: SOB improving HPI: 54-year-old female with past medical history of COPD, hypertension, hyperlipidemia, CAD who was transferred from [facility] where she was diagnosed with COPD exacerbation and leukocytosis associated with hypoxic respiratory failure and shortness of breath. Patient states that she has a history of COPD and she was seen at [facility] where she was diagnosed with COPD exacerbation and white blood cell count was slightly elevated at 13.1. Patient was given breathing treatment as well as steroids and placed on BiPAP. Patient denies any pain. Patient was assessed in the ER and was placed on BiPAP and was admitted for further management Objective General VS/I O: Vital Signs: Date Time Temp Pulse Resp B/P B/P Pulse O2 O2 Flow FiO2 Mean Ox Delivery Rate 11/27 1300 84 19 138/74 98 87 11/27 1200 98.1 11/27 1200 87 26 147/76 102 95 11/27 1100 73 21 131/69 90 95 11/27 1000 77 20 145/70 100 96 11/27 0900 96 20 89 11/27 0843 97.3 11/27 0800 68 35 159/77 111 98 11/27 0709 96 High flow 4 nasal cannula 11/27 0704 96 High flow 5 nasal cannula 11/27 0700 73 38 147/75 102 98 11/27 0600 62 32 147/68 98 97 11/27 0500 75 39 167/77 111 100 11/27 0400 75 21 146/74 103 98 11/27 0300 82 22 148/92 114 95 11/27 0200 76 27 144/70 100 91 11/27 0100 72 39 135/70 97 98 11/27 0000 98.4 11/27 0000 80 23 145/79 104 95 11/26 2300 90 18 140/66 95 94 11/26 2200 91 23 138/70 97 94 11/26 2100 96 34 145/70 100 96 11/27 1999 98.6 11/27 1999 Nasal 5 40 cannula 11/27 1999 93 21 143/65 94 95 11/26 1900 87 37 132/71 93 96 11/26 1850 97 Nasal 5 40 cannula 11/26 1800 89 22 133/67 93 94 11/26 1700 92 25 125/69 92 95 11/26 1609 88 15 129/76 95 96 11/26 1604 99.1 11/26 1604 91 18 117/59 80 94 11/26 1531 Nasal 5 40 cannula 24 hour I O ending at 0700: 11/27 0700 11/26 1900 Intake Total 350 650 Output Total 520 Balance -170 650 Intake, Oral 350 400 Intake, Oral 250 Supplement Number 1 Bowel Movements Output, Urine 520 PATIENT WEIGHT: Weight (lb): Weight (oz): Weight (kg): 69.000 Medications: Active Meds + DC'd Last 24 Hrs Atorvastatin Calcium (LIPITOR) 40 MG BEDTIME PO Methylprednisolone Sodium Succinate (Solu-MEDROL) 40 MG Q12H IV Clopidogrel Bisulfate (Plavix) 75 MG DAILY PO Losartan Potassium (COZAAR) 12.5 MG DAILY PO Verapamil HCl (CALAN) 40 MG Q8HR PO Budesonide (PULMICORT RESPULES) 0.5 MG RTQ12H NEB Formoterol Fumarate (PERFOROMIST) 20 MCG RTQ12H NEB Acetaminophen (TYLENOL) 650 MG Q4H PRN PRN PO Sterile Water (WATER FOR INJECTION) 0 ASDIR IV Aspirin (ECOTRIN) 81 MG DAILY PO Albuterol/Ipratropium (DUONEB) 3 ML RTQ4H NEB Ceftriaxone Sodium (ROCEPHIN) 1,000 MG Q24H IV (DC) Sterile Water (WATER FOR INJECTION) 10 ML Dietitian nutrition assessment The data set between the solid lines has been imported from the dietitian's assessment. BMI Calculated: 26.1 Nutrition related diagnosis: Nutrition diagnosis details: Nutrition problem: Nutrition etiology: Nutrition signs and symptoms: Nutrition prescription: Dietitian name: Assessment completed: Physical Exam General appearance: alert, awake Head/Eyes: atraumatic, normocephalic ENT: dry mucosal membrane Neck: supple/no meningismus Cardiovascular: normal heart sounds, regular rate rhythm Respiratory: decreased breath sounds, rales Abdomen: soft, no distention Genitourinary: no bladder distention Extremities: decreased range of motion Musculoskeletal: decreased ROM Neuro/LAW OFFICE MANAGER: alert, no motor deficits, no sensory deficits Skin: dry, no rash Lymphatics: no lymphadenopathy Psychiatry: anxious Diagnosis, Assessment Plan Problem List/A P: 1. COPD exacerbation 2. Elevated troponin 3. Pneumonia 4. CASSANDRA (acute kidney injury) Free Text DxA P Notes Free text DxA P notes: Acute COPD exacerbation Monitor closely on telemetry Bronchodilators Continue steroids Robitussin as needed Continue home medications and titrate as needed NSTEMI Monitor under telemetry Cardiac enzymes trended Echocardiogram Started on aspirin statin Plavix Cardiology consult Continue beta-blockers Acute hypoxic respiratory failure Placed on BiPAP Will try to wean down oxygen requirement X-ray findings noted Monitor under telemetry Pulmonology consulted Possible pneumonitis Chest x-ray findings noted We will get a CT of the chest to rule out any other cause Diabetes Insulin sliding scale Accu-Chek before every meal and at bedtime Will get an A1c Hypertension Antihypertensives titrated Continue home medications and titrate as needed Hyperlipidemia We will get a lipid panel and A1c Continue statin GI/DVT prophylaxis Advanced directive full code echocardiogram noted EF is 50 to 54% with no regional wall motion abnormality and grade 1 diastolic dysfunction, RVSP of 41 Cardiology consulted Awaiting further clinical improvement Appreciate help from pulmonology Continue bronchodilators Awaiting further recommendation Patient is hypoxic on ambulation Need home O2 assessment Patient need oxygen to go home with Case management consult for home O2 Possible DC in a.m. at 1450 RPT #: [id number] END OF REPORT [facility] 2024-11-27 10:40:00 [facility] ([facility] Pulmonology Progress Note REPORT#:[id number] REPORT STATUS: Signed REPORT INITIALIZATION DATE:11/27/24 TIME:104 PATIENT: CHEY NORMAN UNIT #: [id number] ROOM/BED: [place] [address] : 68 AGE: 54 SEX: F ATTEND: Addison Rocha MD ADM AUTHOR: Doron Espinosa MD REPT SERVICE DT/TIME: 11/27/24 1040 * ALL edits or amendments must be made on the electronic/computer document * Subjective Chief complaint: less SOB no distress On NC HPI: 54-year-old female with history of obesity and COPD 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 Eyes: Denies: discharge. Respiratory: Denies: hemoptysis. GI: Denies: diarrhea. Objective Free Text Obj Notes Free Text Obj Notes: General appearance: Alert and oriented not in distress Head and neck. Normocephalic atraumatic, no pallor no jaundice, no goiter CV: S1-S2 regular rate and rhythm, no murmur Lungs: Decreased breathing sounds bilaterally Abdomen: Soft lax nontender, no masses Extremities: No lower limb edema, no cyanosis no clubbing Neurologic: Alert and oriented, intact cranial nerves, no focal deficit Skin: Intact, no lesions Lymphatic: No lymphadenopathy appreciated Diagnosis, Assessment Plan Free Text A P: 1. Acute hypoxic respiratory failure possible hypercapnia 2. Bilateral pneumonia 3. COPD with acute exacerbation 6.13 Seen and examined at bedside Evaluated initial workup Chest x-ray bilateral interstitial infiltrate consistent with atypical pneumonitis Will order CT chest without contrast Sputum studies COVID testing IV steroids BID IV antibiotics Rocephin and azithromycin DuoNebs every 6 hours BiPAP intermittently and nightly Pulmicort and Perforomist Continue bronchodilators Continue antibiotics PTOT Assess home oxygen needs and needing BIPAP as outpatinet In am could be DC on trilogy inhaler and Medrol dose terry and Z terry smoking cessation counseling at 0821 RPT #: [id number] END OF REPORT [facility] 2024-11-26 11:44:00 [facility] Pulmonology Progress Note REPORT#:[id number] REPORT STATUS: Signed REPORT INITIALIZATION DATE:11/26/24 TIME:114 PATIENT: CHEY NORMAN UNIT #: [id number] ROOM/BED: [place] [address] : 68 AGE: 54 SEX: F ATTEND: Addison Rocha MD ADM AUTHOR: Doron Espinosa MD REPT SERVICE DT/TIME: 11/26/24 1144 * ALL edits or amendments must be made on the electronic/computer document * Subjective Chief complaint: less SOB no distress On NC HPI: 54-year-old female with history of obesity and COPD 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 Eyes: Denies: discharge. Respiratory: Denies: hemoptysis. GI: Denies: diarrhea. Objective General VS/I O: Last Documented: Result Date Time Temp 36.9 11/26 1112 Pulse Ox 94 11/26 1100 B/P 135/68 11/26 1100 B/P Mean 92 11/26 1100 Pulse 80 11/26 1100 Resp 11 11/26 1100 O2 Delivery Nasal cannula 11/26 1024 O2 Flow Rate 5 11/26 1024 FiO2 40 11/26 0645 24 hour I O ending at 0700: 11/26 0700 11/25 1900 Intake Total 368.00 Output Total 900 Balance -532.00 Intake, IV 250.00 Intake, Oral 118 Number 1 1 Bowel Movements Output, Urine 900 PATIENT WEIGHT: Weight (lb): Weight (oz): Weight (kg): 69.000 Medications: Active Meds + DC'd Last 24 Hrs Ceftriaxone Sodium (ROCEPHIN) 0 .STK-MED ONE .ROUTE (DC) Methylprednisolone Sodium Succinate (Solu-MEDROL) 40 MG Q12H IV Clopidogrel Bisulfate (Plavix) 75 MG DAILY PO Losartan Potassium (COZAAR) 12.5 MG DAILY PO Verapamil HCl (CALAN) 40 MG Q8HR PO Azithromycin (ZITHROMAX) 500 MG Q24H PO (DC) Budesonide (PULMICORT RESPULES) 0.5 MG RTQ12H NEB Formoterol Fumarate (PERFOROMIST) 20 MCG RTQ12H NEB Acetaminophen (TYLENOL) 650 MG Q4H PRN PRN PO Sterile Water (WATER FOR INJECTION) 0 ASDIR IV Aspirin (ECOTRIN) 81 MG DAILY PO Albuterol/Ipratropium (DUONEB) 3 ML RTQ4H NEB Ceftriaxone Sodium (ROCEPHIN) 1,000 MG Q24H IV Sterile Water (WATER FOR INJECTION) 10 ML Results Findings/Data: Laboratory Tests 11/25 1344 Blood Gas Puncture Site (DESCRIPTION ARTKIT) Left Radial ABG pH (7.35 - 7.45 pH units) 7.42 ABG pCO2 (35 - 45 mmHg) 63 H ABG pO2 (80 - 100 mmHg) 62 L ABG PO2/FiO2 Ratio (200 mm/Hg) 172.2 L ABG HCO3 (22.0 - 26.0 mmol/L) 40.1 H ABG O2 Saturation (90 - 100 %) 93 ABG Base Excess (-3.0 - 3.0 mmol/L) 12.3 H Chai Test (POSITIVE Circ.CHK) Yes Hgb O2 Saturation (95.0 - 100.0 % (linda)) 91.9 L Carboxyhemoglobin (0.5 - 1.5 %) 0.7 Methemoglobin (0.0 - 0.0 %) 0.1 H Total Hemoglobin (12.0 - 18.0 GRAM/DL) 16.4 O2 Delivery Device (Descript) N/C FiO2 (21 - 100 % (calc)) 36 Free Text Obj Notes Free Text Obj Notes: General appearance: Alert and oriented not in distress Head and neck. Normocephalic atraumatic, no pallor no jaundice, no goiter CV: S1-S2 regular rate and rhythm, no murmur Lungs: Decreased breathing sounds bilaterally Abdomen: Soft lax nontender, no masses Extremities: No lower limb edema, no cyanosis no clubbing Neurologic: Alert and oriented, intact cranial nerves, no focal deficit Skin: Intact, no lesions Lymphatic: No lymphadenopathy appreciated Diagnosis, Assessment Plan Free Text A P: 1. Acute hypoxic respiratory failure possible hypercapnia 2. Bilateral pneumonia 3. COPD with acute exacerbation 6.13 Seen and examined at bedside Evaluated initial workup Chest x-ray bilateral interstitial infiltrate consistent with atypical pneumonitis Will order CT chest without contrast Sputum studies COVID testing IV steroids BID IV antibiotics Rocephin and azithromycin DuoNebs every 6 hours BiPAP intermittently and nightly Pulmicort and Perforomist Continue bronchodilators Continue antibiotics PTOT Assess home oxygen needs and needing BIPAP as outpatinet In am could be DC on trilogy inhaler and Medrol dose terry and Z terry smoking cessation counseling at 1145 RPT #: [id number] END OF REPORT [facility] 2024-11-26 10:09:00 [facility] ([facility]) Hospitalist Progress Note REPORT#:[id number] REPORT STATUS: Signed REPORT INITIALIZATION DATE:11/26/24 TIME:1009 PATIENT: CHEY NORMAN UNIT #: [id number] ROOM/BED: [place] [address] : 68 AGE: 54 SEX: F ATTEND: Addison Rocha MD ADM AUTHOR: Addison Rocha MD REPT SERVICE DT/TIME: 11/26/24 1009 * ALL edits or amendments must be made on the electronic/computer document * Subjective Chief complaint: SOB HPI: 54-year-old female with past medical history of COPD, hypertension, hyperlipidemia, CAD who was transferred from [facility] where she was diagnosed with COPD exacerbation and leukocytosis associated with hypoxic respiratory failure and shortness of breath. Patient states that she has a history of COPD and she was seen at [facility] where she was diagnosed with COPD exacerbation and white blood cell count was slightly elevated at 13.1. Patient was given breathing treatment as well as steroids and placed on BiPAP. Patient denies any pain. Patient was assessed in the ER and was placed on BiPAP and was admitted for further management Objective General VS/I O: Vital Signs: Date Time Temp Pulse Resp B/P B/P Pulse O2 O2 Flow FiO2 Mean Ox Delivery Rate 11/27 1300 84 19 138/74 98 87 11/27 1200 98.1 11/27 1200 87 26 147/76 102 95 11/27 1100 73 21 131/69 90 95 11/27 1000 77 20 145/70 100 96 11/27 0900 96 20 89 11/27 0843 97.3 11/27 0800 68 35 159/77 111 98 11/27 0709 96 High flow 4 nasal cannula 11/27 0704 96 High flow 5 nasal cannula 11/27 0700 73 38 147/75 102 98 11/27 0600 62 32 147/68 98 97 11/27 0500 75 39 167/77 111 100 11/27 0400 75 21 146/74 103 98 11/27 0300 82 22 148/92 114 95 11/27 0200 76 27 144/70 100 91 11/27 0100 72 39 135/70 97 98 11/27 0000 98.4 11/27 0000 80 23 145/79 104 95 11/26 2300 90 18 140/66 95 94 11/26 2200 91 23 138/70 97 94 11/26 2100 96 34 145/70 100 96 11/26 2000 98.6 11/27 1999 Nasal 5 40 cannula 11/26 2000 93 21 143/65 94 95 11/26 1900 87 37 132/71 93 96 11/26 1850 97 Nasal 5 40 cannula 11/26 1800 89 22 133/67 93 94 11/26 1700 92 25 125/69 92 95 11/26 1609 88 15 129/76 95 96 11/26 1604 99.1 11/26 1604 91 18 117/59 80 94 11/26 1531 Nasal 5 40 cannula 24 hour I O ending at 0700: 11/27 0700 11/26 1900 Intake Total 350 650 Output Total 520 Balance -170 650 Intake, Oral 350 400 Intake, Oral 250 Supplement Number 1 Bowel Movements Output, Urine 520 PATIENT WEIGHT: Weight (lb): Weight (oz): Weight (kg): 69.000 Medications: Active Meds + DC'd Last 24 Hrs Atorvastatin Calcium (LIPITOR) 40 MG BEDTIME PO Methylprednisolone Sodium Succinate (Solu-MEDROL) 40 MG Q12H IV Clopidogrel Bisulfate (Plavix) 75 MG DAILY PO Losartan Potassium (COZAAR) 12.5 MG DAILY PO Verapamil HCl (CALAN) 40 MG Q8HR PO Budesonide (PULMICORT RESPULES) 0.5 MG RTQ12H NEB Formoterol Fumarate (PERFOROMIST) 20 MCG RTQ12H NEB Acetaminophen (TYLENOL) 650 MG Q4H PRN PRN PO Sterile Water (WATER FOR INJECTION) 0 ASDIR IV Aspirin (ECOTRIN) 81 MG DAILY PO Albuterol/Ipratropium (DUONEB) 3 ML RTQ4H NEB Ceftriaxone Sodium (ROCEPHIN) 1,000 MG Q24H IV (DC) Sterile Water (WATER FOR INJECTION) 10 ML Dietitian nutrition assessment The data set between the solid lines has been imported from the dietitian's assessment. BMI Calculated: 26.1 Nutrition related diagnosis: Nutrition diagnosis details: Nutrition problem: Nutrition etiology: Nutrition signs and symptoms: Nutrition prescription: Dietitian name: Assessment completed: Physical Exam General appearance: respiratory support, alert, awake Head/Eyes: atraumatic, normocephalic ENT: dry mucosal membrane Neck: supple/no meningismus Cardiovascular: normal heart sounds, regular rate rhythm Respiratory: decreased breath sounds, rales Abdomen: soft, no distention Genitourinary: no bladder distention Extremities: decreased range of motion Musculoskeletal: decreased ROM Neuro/LAW OFFICE MANAGER: alert, no motor deficits, no sensory deficits Skin: dry, no rash Lymphatics: no lymphadenopathy Psychiatry: anxious Diagnosis, Assessment Plan Problem List/A P: 1. COPD exacerbation 2. Elevated troponin 3. Pneumonia 4. CASSANDRA (acute kidney injury) Free Text DxA P Notes Free text DxA P notes: Acute COPD exacerbation Monitor closely on telemetry Bronchodilators Continue steroids Robitussin as needed Continue home medications and titrate as needed NSTEMI Monitor under telemetry Cardiac enzymes trended Echocardiogram Started on aspirin statin Plavix Cardiology consult Continue beta-blockers Acute hypoxic respiratory failure Placed on BiPAP Will try to wean down oxygen requirement X-ray findings noted Monitor under telemetry Pulmonology consulted Possible pneumonitis Chest x-ray findings noted We will get a CT of the chest to rule out any other cause Diabetes Insulin sliding scale Accu-Chek before every meal and at bedtime Will get an A1c Hypertension Antihypertensives titrated Continue home medications and titrate as needed Hyperlipidemia We will get a lipid panel and A1c Continue statin GI/DVT prophylaxis Advanced directive full code echocardiogram noted EF is 50 to 54% with no regional wall motion abnormality and grade 1 diastolic dysfunction, RVSP of 41 Cardiology consulted Awaiting further clinical improvement Appreciate help from pulmonology Continue bronchodilators Awaiting further recommendation Patient is hypoxic on ambulation Need home O2 assessment Patient need oxygen to go home with Case management consult for home O2 Possible DC in a.m. 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 Eyes: Denies: discharge. Respiratory: Denies: hemoptysis. GI: Denies: diarrhea. All systems rev neg: except as marked Objective General VS/I O: Last Documented: Result Date Time Pulse Ox 94 11/25 1030 FiO2 32 11/25 1030 O2 Delivery Nasal cannula 11/25 1030 O2 Flow Rate 3 11/25 1030 Temp 37.1 11/25 0740 B/P 151/71 11/25 0600 B/P Mean 102 11/25 0600 Pulse 73 11/25 0600 Resp 25 11/25 0600 24 hour I O ending at 0700: 11/25 0700 11/24 1900 Intake Total 250 1050.00 Output Total 1300 700 Balance -1050 350.00 Intake, IV 250.00 Intake, Oral 250 800 Number 2 1 Bowel Movements Output, Urine 1300 700 PATIENT WEIGHT: Weight (lb): Weight (oz): Weight (kg): 69.000 Medications: Active Meds + DC'd Last 24 Hrs Non-Formulary Medication (VANCOMYCIN AUC2) 1 EACH 0900 MISC (DC) Non-Formulary Medication (VANCOMYCIN AUC1) 1 EACH 0100 MISC (DC) Methylprednisolone Sodium Succinate (Solu-MEDROL) 40 MG Q12H IV Vancomycin HCl (VANCOMYCIN HCL) 1,000 MG Q12HR IV Sodium Chloride (0.9% Sodium Chloride) 250 ML Clopidogrel Bisulfate (Plavix) 75 MG DAILY PO Losartan Potassium (COZAAR) 12.5 MG DAILY PO Verapamil HCl (CALAN) 40 MG Q8HR PO Miscellaneous Information (VANCOMYCIN PHARMACY TO DOSE) 1 EACH ASDIR IV Azithromycin (ZITHROMAX) 500 MG Q24H PO Budesonide (PULMICORT RESPULES) 0.5 MG RTQ12H NEB Formoterol Fumarate (PERFOROMIST) 20 MCG RTQ12H NEB Acetaminophen (TYLENOL) 650 MG Q4H PRN PRN PO Methylprednisolone Sodium Succinate (Solu-MEDROL) 60 MG Q8H IV (DC) Sterile Water (WATER FOR INJECTION) 0 ASDIR IV Aspirin (ECOTRIN) 81 MG DAILY PO Albuterol/Ipratropium (DUONEB) 3 ML RTQ4H NEB Ceftriaxone Sodium (ROCEPHIN) 1,000 MG Q24H IV Sterile Water (WATER FOR INJECTION) 10 ML Perflutren Lipid Microsphere (DEFINITY) 2 ML ONCE PRN IV (DC) Results Findings/Data: Laboratory Tests 11/25/24 0059: [Embedded Image Not Available] Laboratory Tests 11/25 0059 Chemistry Creatinine (0.6 - 1.0 MG/DL) 0.6 Laboratory Tests 11/25 11/25 0855 0059 Toxicology Vancomycin Peak (AUC) (20 - 60 mcg/mL) 23.0 Vancomycin Trough (AUC) (10 - 20 mcg/mL) 6.5 L Free Text Obj Notes Free Text Obj Notes: General appearance: Alert and oriented not in distress Head and neck. Normocephalic atraumatic, no pallor no jaundice, no goiter CV: S1-S2 regular rate and rhythm, no murmur Lungs: Decreased breathing sounds bilaterally Abdomen: Soft lax nontender, no masses Extremities: No lower limb edema, no cyanosis no clubbing Neurologic: Alert and oriented, intact cranial nerves, no focal deficit Skin: Intact, no lesions Lymphatic: No lymphadenopathy appreciated Diagnosis, Assessment Plan Free Text A P: 1. Acute hypoxic respiratory failure possible hypercapnia 2. Bilateral pneumonia 3. COPD with acute exacerbation 6.13 Seen and examined at bedside Evaluated initial workup Chest x-ray bilateral interstitial infiltrate consistent with atypical pneumonitis Will order CT chest without contrast Mycoplasma IgM and Legionella antigen Sputum studies COVID testing Urine drug screen Start IV steroids IV antibiotics Rocephin and azithromycin DuoNebs every 6 hours BiPAP intermittently and nightly Pulmicort and Perforomist patient is having severe hypercapnia Counseling regarding BIPAP done repeat ABG I will decrease steroids to 40 mg every 12 hours Continue bronchodilators Continue antibiotics PTOT Assess home oxygen needs at 1105 RPT #: [id number] END OF REPORT [facility] 2024-11-25 10:21:00 [facility] Hospitalist Progress Note REPORT#:[id number] REPORT STATUS: Signed REPORT INITIALIZATION DATE:11/25/24 TIME:102 PATIENT: CHEY NORMAN UNIT #: [id number] ROOM/BED: [place] [address] : 68 AGE: 54 SEX: F ATTEND: Addison Rocha MD ADM AUTHOR: Addison Rocha MD REPT SERVICE DT/TIME: 11/25/24 1021 * ALL edits or amendments must be made on the electronic/computer document * Subjective Chief complaint: SOB HPI: 54-year-old female with past medical history of COPD, hypertension, hyperlipidemia, CAD who was transferred from [facility] where she was diagnosed with COPD exacerbation and leukocytosis associated with hypoxic respiratory failure and shortness of breath. Patient states that she has a history of COPD and she was seen at [facility] where she was diagnosed with COPD exacerbation and white blood cell count was slightly elevated at 13.1. Patient was given breathing treatment as well as steroids and placed on BiPAP. Patient denies any pain. Patient was assessed in the ER and was placed on BiPAP and was admitted for further management Objective General VS/I O: Vital Signs: Date Time Temp Pulse Resp B/P B/P Pulse O2 O2 Flow FiO2 Mean Ox Delivery Rate 11/25 0740 98.8 11/25 0600 73 25 151/71 102 98 11/25 0500 74 26 137/67 95 98 11/25 0400 75 27 151/72 103 97 11/25 0300 78 47 144/77 106 97 11/25 0200 80 43 143/78 104 96 11/25 0100 72 29 127/67 90 97 11/25 0000 98.0 11/25 0000 87 29 149/76 107 96 11/24 2049 97 Nasal 4 19 cannula 11/25 1999 97.4 11/25 1999 High flow 4 nasal cannula 11/25 1999 86 35 156/84 113 92 11/24 1900 79 18 149/70 98 94 11/24 1800 76 32 147/67 97 92 11/24 1700 80 44 130/68 93 92 11/24 1628 79 18 134/77 96 93 11/24 1610 98.2 11/24 1600 80 30 133/62 89 94 11/24 1500 79 25 130/67 91 98 11/24 1400 73 8 142/67 97 94 11/24 1300 88 10 153/72 103 96 11/24 1246 80 11/24 1210 98.0 11/24 1200 87 9 157/72 104 92 11/24 1100 80 15 163/64 92 95 24 hour I O ending at 0700: 11/25 0700 11/24 1900 Intake Total 250 1050.00 Output Total 1300 700 Balance -1050 350.00 Intake, IV 250.00 Intake, Oral 250 800 Number 2 1 Bowel Movements Output, Urine 1300 700 PATIENT WEIGHT: Weight (lb): Weight (oz): Weight (kg): 69.000 Medications: Active Meds + DC'd Last 24 Hrs Non-Formulary Medication (VANCOMYCIN AUC2) 1 EACH 0900 MISC (DC) Non-Formulary Medication (VANCOMYCIN AUC1) 1 EACH 0100 MISC (DC) Methylprednisolone Sodium Succinate (Solu-MEDROL) 40 MG Q12H IV Vancomycin HCl (VANCOMYCIN HCL) 1,000 MG Q12HR IV Sodium Chloride (0.9% Sodium Chloride) 250 ML Clopidogrel Bisulfate (Plavix) 75 MG DAILY PO Losartan Potassium (COZAAR) 12.5 MG DAILY PO Verapamil HCl (CALAN) 40 MG Q8HR PO Miscellaneous Information (VANCOMYCIN PHARMACY TO DOSE) 1 EACH ASDIR IV Azithromycin (ZITHROMAX) 500 MG Q24H PO Budesonide (PULMICORT RESPULES) 0.5 MG RTQ12H NEB Formoterol Fumarate (PERFOROMIST) 20 MCG RTQ12H NEB Acetaminophen (TYLENOL) 650 MG Q4H PRN PRN PO Methylprednisolone Sodium Succinate (Solu-MEDROL) 60 MG Q8H IV (DC) Sterile Water (WATER FOR INJECTION) 0 ASDIR IV Aspirin (ECOTRIN) 81 MG DAILY PO Albuterol/Ipratropium (DUONEB) 3 ML RTQ4H NEB Ceftriaxone Sodium (ROCEPHIN) 1,000 MG Q24H IV Sterile Water (WATER FOR INJECTION) 10 ML Perflutren Lipid Microsphere (DEFINITY) 2 ML ONCE PRN IV (DC) Dietitian nutrition assessment The data set between the solid lines has been imported from the dietitian's assessment. BMI Calculated: 26.1 Nutrition related diagnosis: Nutrition diagnosis details: Nutrition problem: Nutrition etiology: Nutrition signs and symptoms: Nutrition prescription: Dietitian name: Assessment completed: Physical Exam General appearance: alert, awake Head/Eyes: atraumatic, normocephalic ENT: dry mucosal membrane Neck: supple/no meningismus Cardiovascular: normal heart sounds, regular rate rhythm Respiratory: decreased breath sounds, rales Abdomen: soft, no distention Genitourinary: no bladder distention Extremities: decreased range of motion Musculoskeletal: decreased ROM Neuro/LAW OFFICE MANAGER: alert, no motor deficits, no sensory deficits Skin: dry, no rash Lymphatics: no lymphadenopathy Psychiatry: anxious Results Findings/Data: Laboratory Tests 11/25 0059 Chemistry Creatinine (0.6 - 1.0 MG/DL) 0.6 Laboratory Tests 11/25 11/25 0855 0059 Toxicology Vancomycin Peak (AUC) (20 - 60 mcg/mL) 23.0 Vancomycin Trough (AUC) (10 - 20 mcg/mL) 6.5 L Diagnosis, Assessment Plan Problem List/A P: 1. COPD exacerbation 2. Elevated troponin 3. Pneumonia 4. CASSANDRA (acute kidney injury) Free Text DxA P Notes Free text DxA P notes: Acute COPD exacerbation Monitor closely on telemetry Bronchodilators Continue steroids Robitussin as needed Continue home medications and titrate as needed NSTEMI Monitor under telemetry Cardiac enzymes trended Echocardiogram Started on aspirin statin Plavix Cardiology consult Continue beta-blockers Acute hypoxic respiratory failure Placed on BiPAP Will try to wean down oxygen requirement X-ray findings noted Monitor under telemetry Pulmonology consulted Possible pneumonitis Chest x-ray findings noted We will get a CT of the chest to rule out any other cause Diabetes Insulin sliding scale Accu-Chek before every meal and at bedtime Will get an A1c Hypertension Antihypertensives titrated Continue home medications and titrate as needed Hyperlipidemia We will get a lipid panel and A1c Continue statin GI/DVT prophylaxis Advanced directive full code echocardiogram noted EF is 50 to 54% with no regional wall motion abnormality and grade 1 diastolic dysfunction, RVSP of 41 Cardiology consulted Awaiting further clinical improvement Appreciate help from pulmonology Continue bronchodilators Awaiting further recommendation at 1059 RPT #: [id number] END OF REPORT [facility] 2024-11-24 11:38:00 [facility] Pulmonology Progress Note REPORT#:[id number] REPORT STATUS: Signed REPORT INITIALIZATION DATE:11/24/24 TIME:113 PATIENT: CHEY NORMAN UNIT #: [id number] ROOM/BED: [place] [id number] : 68 AGE: 54 SEX: F ATTEND: Addison Rocha MD ADM AUTHOR: Jaydon Paulino MD REPT SERVICE DT/TIME: 11/24/24 1138 * ALL edits or amendments must be made on the electronic/computer document * Subjective HPI: 54-year-old female with history of obesity and COPD 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 Eyes: Denies: discharge. Respiratory: Denies: hemoptysis. GI: Denies: diarrhea. Objective General VS/I O: Last Documented: Result Date Time FiO2 44 11/24 0813 O2 Delivery High flow nasal cannula 11/24 0813 O2 Flow Rate 5 11/24 0813 Temp 36.6 11/24 0755 Pulse Ox 100 11/24 0734 B/P 108/61 11/24 0600 B/P Mean 78 11/24 0600 Pulse 79 11/24 0600 Resp 27 11/24 0600 24 hour I O ending at 0700: 11/24 0700 11/23 1900 Intake Total 750 Output Total 1100 Balance -350 Intake, Oral 750 Number 0 1 Bowel Movements Output, Urine 1100 PATIENT WEIGHT: Weight (lb): Weight (oz): Weight (kg): 69.000 Medications: Active Meds + DC'd Last 24 Hrs Non-Formulary Medication (VANCOMYCIN AUC2) 1 EACH 0900 MISC Non-Formulary Medication (VANCOMYCIN AUC1) 1 EACH 0100 MISC Vancomycin HCl (Vancomycin HCl) 1,250 MG Q12HR IV (CAN) Sodium Chloride (0.9% Sodium Chloride) 250 ML Vancomycin HCl (VANCOMYCIN HCL) 1,000 MG Q12HR IV Sodium Chloride (0.9% Sodium Chloride) 250 ML Clopidogrel Bisulfate (Plavix) 75 MG DAILY PO Losartan Potassium (COZAAR) 12.5 MG DAILY PO Verapamil HCl (CALAN) 40 MG Q8HR PO Miscellaneous Information (VANCOMYCIN PHARMACY TO DOSE) 1 EACH ASDIR IV Vancomycin HCl (VANCOMYCIN HCL) 750 MG Q2H IV (DC) Sodium Chloride (0.9% Sodium Chloride) 250 ML Sterile Water (WATER FOR INJECTION) 10 ML Q8H ZCHARGE (CAN) Azithromycin (ZITHROMAX) 500 MG Q24H PO Budesonide (PULMICORT RESPULES) 0.5 MG RTQ12H NEB Formoterol Fumarate (PERFOROMIST) 20 MCG RTQ12H NEB Acetaminophen (TYLENOL) 650 MG Q4H PRN PRN PO Methylprednisolone Sodium Succinate (Solu-MEDROL) 60 MG Q8H IV Sterile Water (WATER FOR INJECTION) 0 ASDIR IV Aspirin (ECOTRIN) 81 MG DAILY PO Albuterol/Ipratropium (DUONEB) 3 ML RTQ4H NEB Ceftriaxone Sodium (ROCEPHIN) 1,000 MG Q24H IV Sterile Water (WATER FOR INJECTION) 10 ML Perflutren Lipid Microsphere (DEFINITY) 2 ML ONCE PRN IV (CKD) Results Findings/Data: Laboratory Tests 11/24 528 Toxicology Urine Opiates Screen (<300 NG/ML SCcutoff) NEGATIVE Urine Methadone Screen (<300 NG/ML SCcutoff) NEGATIVE Urine Barbiturates (<200 NG/ML SCcutoff) NEGATIVE Ur Phencyclidine Scrn (<25 NG/ML SCcutoff) NEGATIVE Ur Amphetamines Screen (<1000 NG/ML SCcutoff) NEGATIVE U Benzodiazepines Scrn (<200 NG/ML SCcutoff) NEGATIVE Urine Cocaine Screen (<300 NG/ML SCcutoff) NEGATIVE Urine Cannabinoids (<50 NG/ML SCcutoff) NEGATIVE Laboratory Tests 06/15 0529 Urines Urine Color (YELLOW) Yellow Urine Appearance (CLEAR) CLEAR Urine pH (5.0 - 7.0) 6.0 Ur Specific Challenge (1.005 - 1.015) >=1.030 A Urine Protein (NEGATIVE mg/dL) 2+ Urine Glucose (UA) (NEGATIVE mg/dL) 1+ Urine Ketones (NEGATIVE) Negative Urine Blood (NEGATIVE) Negative Urine Nitrite (NEGATIVE) Negative Urine Bilirubin (NEGATIVE) Negative Urine Urobilinogen (<2.0 EU/dL EU/dL) 0.2 Ur Leukocyte Esterase (NEGATIVE) Negative Urine RBC (0 - 3 #RBC/HPF) 1-3 Urine WBC (0 - 3 #WBC/HPF) 1-3 Ur Squamous Epith Cells (NONE /HPF) TRACE Triple Phos Crystals (NONE - TRACE /HPF) TRACE Amorphous Sediment (NONE SEEN) TRACE Urine Bacteria (NONE - TRACE /HPF) TRACE Urine Culture Screen (Culture CHK Criteria) NO, WBC<10 Free Text Obj Notes Free Text Obj Notes: General appearance: Alert and oriented not in distress Head and neck. Normocephalic atraumatic, no pallor no jaundice, no goiter CV: S1-S2 regular rate and rhythm, no murmur Lungs: Decreased breathing sounds bilaterally Abdomen: Soft lax nontender, no masses Extremities: No lower limb edema, no cyanosis no clubbing Neurologic: Alert and oriented, intact cranial nerves, no focal deficit Skin: Intact, no lesions Lymphatic: No lymphadenopathy appreciated Diagnosis, Assessment Plan Free Text A P: 1. Acute hypoxic respiratory failure possible hypercapnia 2. Bilateral pneumonia 3. COPD with acute exacerbation 6.13 Seen and examined at bedside Evaluated initial workup Chest x-ray bilateral interstitial infiltrate consistent with atypical pneumonitis Will order CT chest without contrast Mycoplasma IgM and Legionella antigen Sputum studies COVID testing Urine drug screen Start IV steroids IV antibiotics Rocephin and azithromycin DuoNebs every 6 hours BiPAP intermittently and nightly Pulmicort and Perforomist 6.14 She is on BiPAP and well-coordinated with it Continue IV antibiotics Continue steroids Continue bronchodilators CT chest yesterday had very severe upper lobe emphysema and infiltrates in the lower lobes Prognosis is guarded 6.15 She does not need BiPAP at this time. She declined it at night and she looks more comfortable. She is feeling better but wants to sleep I will decrease steroids to 40 mg every 12 hours Continue bronchodilators Continue antibiotics Physical therapy to start in the morning. She did not want to start today. She is not on oxygen at home. at 1140 RPT #: [id number] END OF REPORT [facility] 2024-11-24 09:45:00 [facility] ([facility]) Hospitalist Progress Note REPORT#:[id number] REPORT STATUS: Signed REPORT INITIALIZATION DATE:11/24/24 TIME:944 PATIENT: CHEY NORMAN UNIT #: [id number] ROOM/BED: [place] [address] : 68 AGE: 54 SEX: F ATTEND: Addison Rocha MD ADM AUTHOR: Addison Rocha MD REPT SERVICE DT/TIME: 11/24/24944 * ALL edits or amendments must be made on the electronic/computer document * Subjective Chief complaint: SOB HPI: 54-year-old female with past medical history of COPD, hypertension, hyperlipidemia, CAD who was transferred from [facility] where she was diagnosed with COPD exacerbation and leukocytosis associated with hypoxic respiratory failure and shortness of breath. Patient states that she has a history of COPD and she was seen at [facility] where she was diagnosed with COPD exacerbation and white blood cell count was slightly elevated at 13.1. Patient was given breathing treatment as well as steroids and placed on BiPAP. Patient denies any pain. Patient was assessed in the ER and was placed on BiPAP and was admitted for further management Objective General VS/I O: Vital Signs: Date Time Temp Pulse Resp B/P B/P Pulse O2 O2 Flow FiO2 Mean Ox Delivery Rate 11/24 0813 High flow 5 44 nasal cannula 11/24 0755 97.9 11/24 0734 100 Nasal 4 cannula 11/24 0600 79 27 108/61 78 97 11/24 0500 79 33 144/67 96 95 11/24 0400 97.2 11/24 0400 77 41 130/63 90 95 11/24 0300 79 53 115/57 81 97 11/24 0200 85 50 123/59 85 99 11/24 0100 84 38 115/54 78 98 11/24 0000 98.3 11/24 0000 89 44 137/67 95 95 11/23 2300 92 41 111/55 78 94 11/23 2200 96 42 118/55 79 94 11/23 2100 97 55 125/58 84 95 11/23 2043 96 High flow 5 nasal cannula 11/24 1999 97.2 11/24 1999 High flow 5 nasal cannula 11/24 1999 95 29 126/56 81 95 11/23 1800 103 18 123/60 86 93 11/23 1700 100 25 103/58 74 95 11/23 1654 96.6 11/23 1600 102 51 114/58 81 93 11/23 1500 96 39 106/53 76 94 11/23 1400 101 22 109/55 77 93 11/23 1300 95 46 102/53 76 94 11/23 1230 96 High flow 6 44 nasal cannula 11/23 1200 87 22 120/57 82 100 11/23 1154 97.7 24 hour I O ending at 0700: 11/24 0700 11/23 1900 Intake Total 750 Output Total 1100 Balance -350 Intake, Oral 750 Number 0 1 Bowel Movements Output, Urine 1100 PATIENT WEIGHT: Weight (lb): Weight (oz): Weight (kg): 69.000 Medications: Active Meds + DC'd Last 24 Hrs Non-Formulary Medication (VANCOMYCIN AUC2) 1 EACH 0900 MISC Non-Formulary Medication (VANCOMYCIN AUC1) 1 EACH 0100 MISC Vancomycin HCl (Vancomycin HCl) 1,250 MG Q12HR IV (CAN) Sodium Chloride (0.9% Sodium Chloride) 250 ML Vancomycin HCl (VANCOMYCIN HCL) 1,000 MG Q12HR IV Sodium Chloride (0.9% Sodium Chloride) 250 ML Clopidogrel Bisulfate (Plavix) 75 MG DAILY PO Losartan Potassium (COZAAR) 12.5 MG DAILY PO Verapamil HCl (CALAN) 40 MG Q8HR PO Miscellaneous Information (VANCOMYCIN PHARMACY TO DOSE) 1 EACH ASDIR IV Vancomycin HCl (VANCOMYCIN HCL) 750 MG Q2H IV (DC) Sodium Chloride (0.9% Sodium Chloride) 250 ML Sterile Water (WATER FOR INJECTION) 10 ML Q8H ZCHARGE (CAN) Azithromycin (ZITHROMAX) 500 MG Q24H PO Budesonide (PULMICORT RESPULES) 0.5 MG RTQ12H NEB Formoterol Fumarate (PERFOROMIST) 20 MCG RTQ12H NEB Acetaminophen (TYLENOL) 650 MG Q4H PRN PRN PO Methylprednisolone Sodium Succinate (Solu-MEDROL) 60 MG Q8H IV Sterile Water (WATER FOR INJECTION) 0 ASDIR IV Aspirin (ECOTRIN) 81 MG DAILY PO Albuterol/Ipratropium (DUONEB) 3 ML RTQ4H NEB Ceftriaxone Sodium (ROCEPHIN) 1,000 MG Q24H IV Sterile Water (WATER FOR INJECTION) 10 ML Perflutren Lipid Microsphere (DEFINITY) 2 ML ONCE PRN IV (CKD) Dietitian nutrition assessment The data set between the solid lines has been imported from the dietitian's assessment. BMI Calculated: 26.1 Nutrition related diagnosis: Nutrition diagnosis details: Nutrition problem: Nutrition etiology: Nutrition signs and symptoms: Nutrition prescription: Dietitian name: Assessment completed: Physical Exam General appearance: alert, awake Head/Eyes: atraumatic, normocephalic ENT: dry mucosal membrane Neck: supple/no meningismus Cardiovascular: normal heart sounds, regular rate rhythm Respiratory: decreased breath sounds, rales Abdomen: soft, no distention Genitourinary: no bladder distention Extremities: decreased range of motion Musculoskeletal: decreased ROM Neuro/LAW OFFICE MANAGER: alert, no motor deficits, no sensory deficits Skin: dry, no rash Lymphatics: no lymphadenopathy Psychiatry: anxious Results Findings/Data: Laboratory Tests 11/24 0529 Toxicology Urine Opiates Screen (<300 NG/ML SCcutoff) NEGATIVE Urine Methadone Screen (<300 NG/ML SCcutoff) NEGATIVE Urine Barbiturates (<200 NG/ML SCcutoff) NEGATIVE Ur Phencyclidine Scrn (<25 NG/ML SCcutoff) NEGATIVE Ur Amphetamines Screen (<1000 NG/ML SCcutoff) NEGATIVE U Benzodiazepines Scrn (<200 NG/ML SCcutoff) NEGATIVE Urine Cocaine Screen (<300 NG/ML SCcutoff) NEGATIVE Urine Cannabinoids (<50 NG/ML SCcutoff) NEGATIVE Laboratory Tests 11/24 0529 Urines Urine Color (YELLOW) Yellow Urine Appearance (CLEAR) CLEAR Urine pH (5.0 - 7.0) 6.0 Ur Specific Challenge (1.005 - 1.015) >=1.030 A Urine Protein (NEGATIVE mg/dL) 2+ Urine Glucose (UA) (NEGATIVE mg/dL) 1+ Urine Ketones (NEGATIVE) Negative Urine Blood (NEGATIVE) Negative Urine Nitrite (NEGATIVE) Negative Urine Bilirubin (NEGATIVE) Negative Urine Urobilinogen (<2.0 EU/dL EU/dL) 0.2 Ur Leukocyte Esterase (NEGATIVE) Negative Urine RBC (0 - 3 #RBC/HPF) 1-3 Urine WBC (0 - 3 #WBC/HPF) 1-3 Ur Squamous Epith Cells (NONE /HPF) TRACE Triple Phos Crystals (NONE - TRACE /HPF) TRACE Amorphous Sediment (NONE SEEN) TRACE Urine Bacteria (NONE - TRACE /HPF) TRACE Urine Culture Screen (Culture CHK Criteria) NO, WBC<10 Diagnosis, Assessment Plan Problem List/A P: 1. COPD exacerbation 2. Elevated troponin 3. Pneumonia 4. CASSANDRA (acute kidney injury) Free Text DxA P Notes Free text DxA P notes: Acute COPD exacerbation Monitor closely on telemetry Bronchodilators Continue steroids Robitussin as needed Continue home medications and titrate as needed NSTEMI Monitor under telemetry Cardiac enzymes trended Echocardiogram Started on aspirin statin Plavix Cardiology consult Continue beta-blockers Acute hypoxic respiratory failure Placed on BiPAP Will try to wean down oxygen requirement X-ray findings noted Monitor under telemetry Pulmonology consulted Possible pneumonitis Chest x-ray findings noted We will get a CT of the chest to rule out any other cause Diabetes Insulin sliding scale Accu-Chek before every meal and at bedtime Will get an A1c Hypertension Antihypertensives titrated Continue home medications and titrate as needed Hyperlipidemia We will get a lipid panel and A1c Continue statin GI/DVT prophylaxis Advanced directive full code echocardiogram Cardiology consulted Awaiting further clinical improvement Appreciate help from pulmonology Continue bronchodilators Awaiting further recommendation at 1130 RPT #: [id number] END OF REPORT [facility] 2024-11-23 21:04:00 [facility] Cardiology Progress Note REPORT#:[id number] REPORT STATUS: Signed REPORT INITIALIZATION DATE:11/23/24 TIME:2103 PATIENT: CHEY NORMAN UNIT #: [id number] ROOM/BED: [facility] : 68 AGE: 54 SEX: F ATTEND: Addison Rocha MD ADM AUTHOR: Alfie Angulo MD REPT SERVICE DT/TIME: 11/23/242103 * ALL edits or amendments must be made on the electronic/computer document * Subjective Chief complaint: feeling better Objective General VS/I O: 24 hour I O ending at 0700: 11/23 0700 11/22 1900 Intake Total 500 Output Total 450 Balance 50 Intake, Oral 500 Number 0 Bowel Movements Number 0 Incontinent Voids Number Voids 0 Output, Urine 450 Vital Signs: Date Time Temp Pulse Resp B/P B/P Pulse O2 O2 Flow FiO2 Mean Ox Delivery Rate 11/23 2043 96 High flow 5 nasal cannula 11/23 2000 36.2 11/23 2000 95 29 126/56 81 95 11/23 1800 103 18 123/60 86 93 11/23 1700 100 25 103/58 74 95 11/23 1654 35.9 11/23 1600 102 51 114/58 81 93 11/23 1500 96 39 106/53 76 94 11/23 1400 101 22 109/55 77 93 11/23 1300 95 46 102/53 76 94 11/23 1230 96 High flow 6 44 nasal cannula 11/23 1200 87 22 120/57 82 100 11/23 1154 36.5 11/23 1100 93 46 144/65 94 97 11/23 1000 92 10 128/65 88 98 11/23 0911 High flow 10 nasal cannula 11/23 0900 92 31 131/70 95 99 11/23 0841 97 High flow 15 40 nasal cannula 11/23 0800 84 25 130/63 90 99 11/23 0717 36.4 21 11/23 0700 82 24 122/66 87 100 11/23 0500 86 24 127/61 87 97 11/23 0426 81 99 40 11/23 0400 80 23 135/70 92 100 11/23 0326 37.0 11/23 0300 83 24 135/60 87 100 11/23 0200 97 18 136/63 90 98 11/23 0100 85 48 151/79 108 96 11/23 0000 92 26 151/79 109 95 11/22 2308 36.8 11/22 2300 90 50 149/71 101 96 11/22 2200 96 23 142/69 99 97 11/22 2124 98 97 50 PATIENT WEIGHT: Weight (lb): Weight (oz): Weight (kg): 69.000 Medications: Active Meds + DC'd Last 24 Hrs Non-Formulary Medication (VANCOMYCIN AUC2) 1 EACH 0900 MISC Non-Formulary Medication (VANCOMYCIN AUC1) 1 EACH 0100 MISC Vancomycin HCl (Vancomycin HCl) 1,250 MG Q12HR IV (CAN) Sodium Chloride (0.9% Sodium Chloride) 250 ML Vancomycin HCl (VANCOMYCIN HCL) 1,000 MG Q12HR IV Sodium Chloride (0.9% Sodium Chloride) 250 ML Clopidogrel Bisulfate (Plavix) 75 MG DAILY PO (UNV) Miscellaneous Information (VANCOMYCIN PHARMACY TO DOSE) 1 EACH ASDIR IV Vancomycin HCl (VANCOMYCIN HCL) 750 MG Q2H IV (DC) Sodium Chloride (0.9% Sodium Chloride) 250 ML Sterile Water (WATER FOR INJECTION) 10 ML Q8H ZCHARGE (CAN) Azithromycin (ZITHROMAX) 500 MG Q24H PO Budesonide (PULMICORT RESPULES) 0.5 MG RTQ12H NEB Formoterol Fumarate (PERFOROMIST) 20 MCG RTQ12H NEB Acetaminophen (TYLENOL) 650 MG Q4H PRN PRN PO Methylprednisolone Sodium Succinate (Solu-MEDROL) 60 MG Q8H IV Sterile Water (WATER FOR INJECTION) 0 ASDIR IV Aspirin (ECOTRIN) 81 MG DAILY PO Albuterol/Ipratropium (DUONEB) 3 ML RTQ4H NEB Ceftriaxone Sodium (ROCEPHIN) 1,000 MG Q24H IV Sterile Water (WATER FOR INJECTION) 10 ML Perflutren Lipid Microsphere (DEFINITY) 2 ML ONCE PRN IV (CKD) Physical Exam General appearance: alert, awake, conversational Head/Eyes: atraumatic, normocephalic ENT: moist mucosal membranes Neck: no bruit/NL carotids, no JVD Cardiovascular: CV assessment: abnormal S1/S2, S3 present, irregular rhythm, tachycardia Murmur assessment: I/ HSM Respiratory: crackles, decreased breath sounds, shortness of breath, wheezing Abdomen: no pulsatile mass Lower extremity: LE assessment: edema, abnormal pedal pulse, abnormal peripheral pulse Neuro/LAW OFFICE MANAGER: altered mental status Considered stroke alert: no Skin: poor skin turgor Results Findings/Data: Laboratory Tests 11/22 2106 Blood Gas Puncture Site (DESCRIPTION ARTKIT) Left Radial ABG pH (7.35 - 7.45 pH units) 7.22 *L ABG pCO2 (35 - 45 mmHg) 79 *H ABG pO2 (80 - 100 mmHg) 81 ABG PO2/FiO2 Ratio (200 mm/Hg) 115.7 L ABG HCO3 (22.0 - 26.0 mmol/L) 31.6 H ABG O2 Saturation (90 - 100 %) 93 ABG Base Excess (-3.0 - 3.0 mmol/L) 1.2 Chai Test (POSITIVE Circ.CHK) Yes O2 Delivery Device (Descript) N/C FiO2 (21 - 100 % (calc)) 70 Laboratory Tests 11/23 11/22 0949 2133 Chemistry Sodium (136 - 145 mmol/L) 145 Potassium (3.4 - 5.0 mmol/L) 5.0 Chloride (98 - 107 mmol/L) 105 Carbon Dioxide (21 - 32 mmol/L) 37 H Anion Gap (4 - 15 GAP calc) 3 L BUN (7 - 18 MG/DL) 32 H Creatinine (0.6 - 1.0 MG/DL) 0.8 Glomerular Filtr Rate (>60 estGFR) >=60 max estimate Glucose (70 - 110 MG/DL) 212 H Calcium (8.5 - 10.1 MG/DL) 9.7 Phosphorus (2.5 - 4.9 MG/DL) 2.7 Magnesium (1.8 - 2.4 MG/DL) 2.0 Total Bilirubin (0.0 - 1.0 MG/DL) 0.2 AST (15 - 37 Unit/L) 46 H ALT (30 - 65 Unit/L) 70 H Total Alk Phosphatase (50 - 136 Unit/L) 69 Troponin I High Sens (0 - 54 ng/L) 77.5 H Total Protein (6.4 - 8.2 G/DL) 6.9 Albumin (3.4 - 5.0 G/DL) 2.5 L Globulin (GM/dL) 4.4 Albumin/Globulin Ratio (1.2 - 2.2 RATIO) 0.6 L Laboratory Tests 11/23 0949 Hematology WBC (3.5 - 11.0 K/mm3) 7.8 RBC (4.70 - 6.10 M/mm3) 5.00 Hgb (10.4 - 14.9 G/DL) 15.2 H Hct (31.5 - 44.1 %) 49.9 H MCV (84.5 - 98.6 Fl) 99.8 H MCH (27.0 - 34.2 pg) 30.4 MCHC (31.5 - 34.0 G/DL) 30.5 L RDW (11.5 - 14.5 SD) 13.6 Plt Count (150 - 450 K/mm3) 208 MPV (7.0 - 10.5 fL) 9.80 Neut % (Auto) (40 - 76 %) 81.8 H Lymph % (Auto) (20.5 - 51.1 %) 11.6 L [place] % (Auto) (1.7 - 9.3 %) 5.4 Eos % (Auto) (0.0 - 6.0 %) 0.0 Baso % (Auto) (0.0 - 2.0 %) 0.3 Neut # (Auto) (1.8 - 7.6 K/mm3) 6.4 Lymph # (Auto) (0.6 - 3.2 K/mm3) 0.9 [place] # (Auto) (0.3 - 1.1 K/mm3) 0.4 Eos # (Auto) (0.0 - 0.4 K/mm3) 0.0 Baso # (Auto) (0.0 - 0.1 K/mm3) 0.0 Abs Immat Gran (auto) (0.00 - 0.03 x10 3/uL) 0.07 H Add Manual Diff (CRITERIA DIFF/SCN) NO Immature Gran % (0.0 - 5.0 %) 0.9 Nucleated RBC % (0.0 - 1.0 /100WBC%) 0.0 Laboratory Tests 11/23 11/22 0949 2133 Chemistry Magnesium (1.8 - 2.4 MG/DL) 2.0 Troponin I High Sens (0 - 54 ng/L) 77.5 H Diagnosis, Assessment Plan Free Text DxA P Notes Free Text DxA P Notes: IMPRESSION: Respiratory failure Acute coronary syndrome - NSTEMI - most likely type II Acute systolic and diastolic CHF Tachyarrhythmia - PSVT ST Metabolic syndrome PLAN: Conservative medical management at present pending clinical course GDMT as feasibly perimitted Adjust cardiac Rx DAPT at 2107 RPT #: [id number] END OF REPORT [facility] 2024-11-23 19:15:00 [facility]) Pharmacy Prog.Note-Vancomycin REPORT#:[id number] REPORT STATUS: Signed REPORT INITIALIZATION DATE:11/23/24 TIME:1914 PATIENT: CHEY NORMAN UNIT #: [id number] ROOM/BED: [place] [address] : 68 AGE: 54 SEX: F ATTEND: Addison Rocha MD ADM AUTHOR: [place] [facility] REPT SERVICE DT/TIME: 11/23/241914 * ALL edits or amendments must be made on the electronic/computer document * Vancomycin Vancomycin Medication Therapy Goal: AUC 400-600 mg*hr/L Indication for treatment: Bacteremia Current therapy: Medication(s) Ordered: Anti-Infective Agents Sig/Elma Start time Last Medication Dose Route Stop Time Status Admin Vancomycin HCl 1,250 MG Q12HR 11/24 1000 AC Sodium Chloride 250 ML IV 12/08 0959 Vancomycin HCl 750 MG Q2H 11/23 1530 AC 11/23 Sodium Chloride 250 ML IV 11/23 1928 1806 Azithromycin 500 MG Q24H 11/23 0900 AC / PO 11/26 0901 0857 Ceftriaxone Sodium 1,000 MG Q24H 11/22 0930 AC 11/23 Sterile Water 10 ML IV 11/26 1928 0857 Day of therapy: 1 VS and I/O: Vital Signs Date Temp Pulse Resp B/P B/P Mean Pulse Ox FiO2 11/22-11/23 35.9-37.0 80-103 10-51 102-151/53-79 74-109 92-100 40-50 Labs: Laboratory Test : 11/23 11/22 0949 0533 Chemistry BUN (7 - 18 MG/DL) 32 H 38 H Creatinine (0.6 - 1.0 MG/DL) 0.8 1.4 H Hematology WBC (3.5 - 11.0 K/mm3) 7.8 12.0 H Microbiology: 11/22 1230 SPUTUM: Sputum Culture - ORD 11/22 1230 SPUTUM: Gram Stain - ORD 11/22 0900 NASAL: Influenza Virus Type B Antigen - COMP 11/22 09 NASAL: Influenza Virus Type A Antigen - COMP 11/22 0648 NASAL: MRSA Screen - ORD 11/22 532 BLOOD: Blood Culture - RES 11/22 532 BLOOD: Blood Culture - RES 11/22 532 BLOOD: Blood Culture - RES Treatment plan: consult, initiation of therapy Rationale: Consulting Provider: Dr. Rocha 54-year-old female with past medical history of COPD, hypertension, hyperlipidemia, CAD who was transferred from [facility] where she was diagnosed with COPD exacerbation and leukocytosis associated with hypoxic respiratory failure and shortness of breath. Vancomycin now ordered as empiric treatment for suspected bacteremia. * DOT is 7 days with stop date of 11/30 per consult. * 11/23 WBC 7.8 (decr), afebrile, renal function stable. * Bcx from 11/22: GPC in clusters * CXR from 11/22: Bilateral lower lung field infiltrate consistent with pneumonia * Patient was given vancomycin loading dose of 1500mg (750mg +750mg) on 11/23 * Plan: Initiate vancomycin 1000mg q12h for a predicted AUC of 552 * Vancomycin peak and trough are due on 11/25 @ 0100 and 0900, respectively . at 1925 RPT #: [id number] END OF REPORT [facility] 2024-11-23 10:58:00 [facility] ([facility]) Pulmonology Progress Note REPORT#:[id number] REPORT STATUS: Signed REPORT INITIALIZATION DATE:11/23/24 TIME:1057 PATIENT: CHEY NORMAN UNIT #: [id number] ROOM/BED: [facility] : 68 AGE: 54 SEX: F ATTEND: Addison Rocha MD ADM AUTHOR: Jaydon Paulino MD REPT SERVICE DT/TIME: 11/23/24 1058 * ALL edits or amendments must be made on the electronic/computer document * Subjective HPI: 54-year-old female with history of obesity and COPD 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 Eyes: Denies: discharge. Respiratory: Denies: hemoptysis. GI: Denies: diarrhea. Objective General VS/I O: Last Documented: Result Date Time O2 Delivery High flow nasal cannula 11/23 09 O2 Flow Rate 10 11/23 09 Pulse Ox 99 11/23 0900 B/P 131/70 11/23 0900 B/P Mean 95 11/23 0900 Pulse 92 11/23 0900 Resp 31 11/23 0900 FiO2 40 11/23 0841 Temp 36.4 11/23 0717 24 hour I O ending at 0700: 11/23 0700 11/22 1900 Intake Total 500 Output Total 450 Balance 50 Intake, Oral 500 Number 0 Bowel Movements Number 0 Incontinent Voids Number Voids 0 Output, Urine 450 PATIENT WEIGHT: Weight (lb): Weight (oz): Weight (kg): 69.000 Medications: Active Meds + DC'd Last 24 Hrs Azithromycin (ZITHROMAX) 500 MG Q24H PO Budesonide (PULMICORT RESPULES) 0.5 MG RTQ12H NEB Formoterol Fumarate (PERFOROMIST) 20 MCG RTQ12H NEB Clopidogrel Bisulfate (PLAVIX) 300 MG ONCE ONE PO (DC) Acetaminophen (TYLENOL) 650 MG Q4H PRN PRN PO Methylprednisolone Sodium Succinate (Solu-MEDROL) 60 MG Q8H IV Sterile Water (WATER FOR INJECTION) 0 ASDIR IV Aspirin (ECOTRIN) 81 MG DAILY PO Albuterol/Ipratropium (DUONEB) 3 ML RTQ4H NEB Ceftriaxone Sodium (ROCEPHIN) 1,000 MG Q24H IV Sterile Water (WATER FOR INJECTION) 10 ML Perflutren Lipid Microsphere (DEFINITY) 2 ML ONCE PRN IV (CKD) Ceftriaxone Sodium (ROCEPHIN) 1,000 MG X1ED STA IV (DC) Sterile Water (WATER FOR INJECTION) 10 ML Free Text Obj Notes Free Text Obj Notes: General appearance: Alert and oriented not in distress Head and neck. Normocephalic atraumatic, no pallor no jaundice, no goiter CV: S1-S2 regular rate and rhythm, no murmur Lungs: Decreased breathing sounds bilaterally Abdomen: Soft lax nontender, no masses Extremities: No lower limb edema, no cyanosis no clubbing Neurologic: Alert and oriented, intact cranial nerves, no focal deficit Skin: Intact, no lesions Lymphatic: No lymphadenopathy appreciated Diagnosis, Assessment Plan Free Text A P: 1. Acute hypoxic respiratory failure possible hypercapnia 2. Bilateral pneumonia 3. COPD with acute exacerbation 6.13 Seen and examined at bedside Evaluated initial workup Chest x-ray bilateral interstitial infiltrate consistent with atypical pneumonitis Will order CT chest without contrast Mycoplasma IgM and Legionella antigen Sputum studies COVID testing Urine drug screen Start IV steroids IV antibiotics Rocephin and azithromycin DuoNebs every 6 hours BiPAP intermittently and nightly Pulmicort and Perforomist 6.14 She is on BiPAP and well-coordinated with it Continue IV antibiotics Continue steroids Continue bronchodilators CT chest yesterday had very severe upper lobe emphysema and infiltrates in the lower lobes Prognosis is guarded at 1100 RPT #: [id number] END OF REPORT [facility] 2024-11-23 09:04:00 [facility] ([facility]) Hospitalist Progress Note REPORT#:[id number] REPORT STATUS: Signed REPORT INITIALIZATION DATE:11/23/24 TIME:903 PATIENT: CHEY NORMAN UNIT #: [id number] ROOM/BED: [place] [address] : 68 AGE: 54 SEX: F ATTEND: Addison Rocha MD ADM AUTHOR: Addison Rocha MD REPT SERVICE DT/TIME: 11/23/24 0904 * ALL edits or amendments must be made on the electronic/computer document * See Addendum Subjective Chief complaint: SOB HPI: 54-year-old female with past medical history of COPD, hypertension, hyperlipidemia, CAD who was transferred from [facility] where she was diagnosed with COPD exacerbation and leukocytosis associated with hypoxic respiratory failure and shortness of breath. Patient states that she has a history of COPD and she was seen at [facility] where she was diagnosed with COPD exacerbation and white blood cell count was slightly elevated at 13.1. Patient was given breathing treatment as well as steroids and placed on BiPAP. Patient denies any pain. Patient was assessed in the ER and was placed on BiPAP and was admitted for further management Objective General VS/I O: Vital Signs: Date Time Temp Pulse Resp B/P B/P Pulse O2 O2 Flow FiO2 Mean Ox Delivery Rate 11/23 0841 97 High flow 15 40 nasal cannula 11/23 0717 97.5 21 11/23 0700 82 24 122/66 87 100 11/23 0500 86 24 127/61 87 97 11/23 0426 81 99 40 11/23 0400 80 23 135/70 92 100 11/23 0326 98.6 11/23 0300 83 24 135/60 87 100 11/23 0200 97 18 136/63 90 98 11/23 0100 85 48 151/79 108 96 11/23 0000 92 26 151/79 109 95 11/22 2308 98.2 11/22 2300 90 50 149/71 101 96 11/22 2200 96 23 142/69 99 97 11/22 2124 98 97 50 11/22 2100 100 23 135/63 90 93 11/22 2025 92 High flow 12 nasal cannula 11/22 2022 97.9 11/22 2000 BiPAP 11/22 2000 94 37 146/67 96 94 11/22 1908 100 Non 15 rebreather mask 11/22 1800 94 21 145/72 101 100 11/22 1727 Non 15 rebreather mask 11/22 1710 89 48 146/65 94 98 11/22 1600 95 116/73 83 98 11/22 1500 91 129/61 88 99 11/22 1400 86 127/60 87 98 11/22 1230 95 139/65 93 97 11/22 1132 102 97 50 11/22 1100 96 118/57 82 97 11/22 1000 84 28 137/71 97 98 11/22 0930 87 28 142/67 97 99 24 hour I O ending at 0700: 11/23 0700 11/22 1900 Intake Total 500 Output Total 450 Balance 50 Intake, Oral 500 Number 0 Bowel Movements Number 0 Incontinent Voids Number Voids 0 Output, Urine 450 PATIENT WEIGHT: Weight (lb): Weight (oz): Weight (kg): 69.000 Medications: Active Meds + DC'd Last 24 Hrs Azithromycin (ZITHROMAX) 500 MG Q24H PO Budesonide (PULMICORT RESPULES) 0.5 MG RTQ12H NEB Formoterol Fumarate (PERFOROMIST) 20 MCG RTQ12H NEB Clopidogrel Bisulfate (PLAVIX) 300 MG ONCE ONE PO (DC) Acetaminophen (TYLENOL) 650 MG Q4H PRN PRN PO Methylprednisolone Sodium Succinate (Solu-MEDROL) 60 MG Q8H IV Sterile Water (WATER FOR INJECTION) 0 ASDIR IV Aspirin (ECOTRIN) 81 MG DAILY PO Albuterol/Ipratropium (DUONEB) 3 ML RTQ4H NEB Azithromycin (ZITHROMAX) 500 MG Q24H IV (CAN) Sodium Chloride (0.9% Sodium Chloride) 250 ML Ceftriaxone Sodium (ROCEPHIN) 1,000 MG Q24H IV Sterile Water (WATER FOR INJECTION) 10 ML Perflutren Lipid Microsphere (DEFINITY) 2 ML ONCE PRN IV (CKD) Ceftriaxone Sodium (ROCEPHIN) 1,000 MG X1ED STA IV (DC) Sterile Water (WATER FOR INJECTION) 10 ML Dietitian nutrition assessment The data set between the solid lines has been imported from the dietitian's assessment. BMI Calculated: 26.1 Nutrition related diagnosis: Nutrition diagnosis details: Nutrition problem: Nutrition etiology: Nutrition signs and symptoms: Nutrition prescription: Dietitian name: Assessment completed: Results Findings/Data: Laboratory Tests 11/22/24 0533: [Embedded Image Not Available] Laboratory Tests 11/22 11/22 2107 1530 Blood Gas Puncture Site (DESCRIPTION ARTKIT) Left Radial Right Radial ABG pH (7.35 - 7.45 pH units) 7.22 *L 7.22 *L ABG pCO2 (35 - 45 mmHg) 79 *H 82 *H ABG pO2 (80 - 100 mmHg) 81 159 H ABG PO2/FiO2 Ratio (200 mm/Hg) 115.7 L 159.0 L ABG HCO3 (22.0 - 26.0 mmol/L) 31.6 H 32.8 H ABG O2 Saturation (90 - 100 %) 93 99 ABG Base Excess (-3.0 - 3.0 mmol/L) 1.2 2.0 Chai Test (POSITIVE Circ.CHK) Yes Yes Hgb O2 Saturation (95.0 - 100.0 % (linda)) 98.1 Carboxyhemoglobin (0.5 - 1.5 %) 0.5 Methemoglobin (0.0 - 0.0 %) 0.4 H Total Hemoglobin (12.0 - 18.0 GRAM/DL) 16.3 O2 Delivery Device (Descript) N/C NRBMASK FiO2 (21 - 100 % (calc)) 70 100 Laboratory Tests 11/22 11/22 2133 0942 Chemistry Troponin I High Sens (0 - 54 ng/L) 77.5 H 180.1 *H Laboratory Tests 11/22 1640 Serology SARS-CoV-2 Ag (Rapid) (Negative) NEGATIVE Radiology data: Recent Impressions: CAT SCAN - CT CHEST W/O CONTRAST 11/22 1432 Report Impression - Status: SIGNED Entered: 11/22/2024 6722 IMPRESSION: 1. Findings consistent with multifocal pneumonia most severe at the lower lobes possibly due to aspiration. 2. Indeterminate pulmonary nodules for patients at low risk (minimal or absent history of smoking and of other known risk factors), recommend CT Chest at 3-6 months, then consider CT Chest at 18-24 months. For patients at high risk (history of smoking or of other known risk factors), recommend CT Chest at 3-6 months, then CT Chest at 18-24 months. (Reference: Joss) 3. Severe emphysema. COMMENTS: Consistent with the [employer]'s Incidental Findings Committee white paper (J Am Barry Radiol 2018): Any incidental renal lesion less than 1 cm or classified as too small to characterize, or any incidental cystic renal lesion characterized as simple-appearing, is likely benign. No follow-up imaging is recommended for these lesions per consensus recommendations based on imaging criteria. REFERENCES: Joss Gutierrez, et al. Guidelines for Management of Incidental Pulmonary Nodules Detected on CT Images: From the Fleischner Society 2017. Radiology. 2017;284(1):228-243. Impression By: [email or web address] Monk M.D. Diagnosis, Assessment Plan Problem List/A P: 1. COPD exacerbation 2. Elevated troponin 3. Pneumonia 4. CASSANDRA (acute kidney injury) Free Text DxA P Notes Free text DxA P notes: Acute COPD exacerbation Monitor closely on telemetry Bronchodilators Continue steroids Robitussin as needed Continue home medications and titrate as needed NSTEMI Monitor under telemetry Cardiac enzymes trended Echocardiogram Started on aspirin statin Plavix Cardiology consult Continue beta-blockers Acute hypoxic respiratory failure Placed on BiPAP Will try to wean down oxygen requirement X-ray findings noted Monitor under telemetry Pulmonology consulted Possible pneumonitis Chest x-ray findings noted We will get a CT of the chest to rule out any other cause Diabetes Insulin sliding scale Accu-Chek before every meal and at bedtime Will get an A1c Hypertension Antihypertensives titrated Continue home medications and titrate as needed Hyperlipidemia We will get a lipid panel and A1c Continue statin GI/DVT prophylaxis Advanced directive full code Will get an echocardiogram Cardiology consulted Awaiting further clinical improvement Patient still on BiPAP Appreciate help from pulmonology at 0907 Addendum 1: 11/24/24 1131 by Addison Rocha MD Physical Exam General appearance: alert, awake Head/Eyes: atraumatic, normocephalic ENT: dry mucosal membrane Neck: supple/no meningismus Cardiovascular: normal heart sounds, regular rate rhythm Respiratory: decreased breath sounds, rales Abdomen: soft, no distention Genitourinary: no bladder distention Extremities: decreased range of motion Musculoskeletal: decreased ROM Neuro/LAW OFFICE MANAGER: alert, no motor deficits, no sensory deficits Skin: dry, no rash Lymphatics: no lymphadenopathy Psychiatry: anxious at 1131 RPT #: [id number] END OF REPORT [facility] 2024-11-22 18:52:00 [facility] ([facility]) Cardiology Consultation REPORT#:[id number] REPORT STATUS: Signed REPORT INITIALIZATION DATE:11/22/24 TIME:1851 PATIENT: CHEY NORMAN UNIT #: [id number] ROOM/BED: 302-1 : 68 AGE: 54 SEX: F ATTEND: Addison Rocha MD ADM AUTHOR: Alfie Angulo MD REPT SERVICE DT/TIME: 11/22/241851 * ALL edits or amendments must be made on the electronic/computer document * History of Present Illness HPI HPI: 54-year-old female with past medical history of COPD, hypertension, hyperlipidemia, CAD who was transferred from [facility] where she was diagnosed with COPD exacerbation and leukocytosis associated with hypoxic respiratory failure and shortness of breath. Patient states that she has a history of COPD and she was seen at [facility] where she was diagnosed with COPD exacerbation and white blood cell count was slightly elevated at 13.1. Patient was given breathing treatment as well as steroids and placed on BiPAP. Patient denies any pain. Patient was assessed in the ER and was placed on BiPAP and was admitted for further management History Past Medical Surgical Hx Additional medical history: Hypertension, hyperlipidemia, COPD, Additional surgical history: No significant past surgical history Family History Family history: Reports: Hypertension. Social History Smoking status for patients 13 years old or older: Former Smoker Medication/Allergy-Vaccine Hx Allergies: Coded Allergies: No Known Allergies (11/22/24) Review of Systems Unable to obtain due to: Bipap History - Adult longitudinal Past medical history: Reports: COPD. Additional family history: Noncontributory Smoking status for patients 13 years old or older: Unknown,if ever smoked Allergies: Coded Allergies: No Known Allergies (11/22/24) Objective General VS/I O: Vital Signs: Date Time Temp Pulse Resp B/P B/P Pulse O2 O2 Flow FiO2 Mean Ox Delivery Rate 11/22 1727 Non 15 rebreather mask 11/22 1710 89 48 146/65 94 98 11/22 1600 95 116/73 83 98 11/22 1500 91 129/61 88 99 11/22 1400 86 127/60 87 98 11/22 1230 95 139/65 93 97 11/22 1132 102 97 50 11/22 1100 96 118/57 82 97 11/22 1000 84 28 137/71 97 98 11/22 0930 87 28 142/67 97 99 11/22 0835 90 99 50 11/22 0835 99 BiPAP 50 11/22 0730 97 139/67 96 99 / 0705 CPAP 11/22 0606 98 CPAP 11/22 0604 CPAP 11/22 0600 96 16 123/74 94 99 11/22 0520 103 24 132/63 91 98 11/22 0518 104 99 50 11/22 0507 36.6 103 14 104/73 97 BiPAP 24 hour I O ending at 0700: 11/22 0700 11/21 1900 Intake Total Output Total Balance Patient 69 kg Weight Weight Bed scale Measurement Method PATIENT WEIGHT: Weight (lb): Weight (oz): Weight (kg): 69.000 Medications: Active Meds + DC'd Last 24 Hrs Azithromycin (ZITHROMAX) 500 MG Q24H PO Budesonide (PULMICORT RESPULES) 0.5 MG RTQ12H NEB Formoterol Fumarate (PERFOROMIST) 20 MCG RTQ12H NEB Acetaminophen (TYLENOL) 650 MG Q4H PRN PRN PO Methylprednisolone Sodium Succinate (Solu-MEDROL) 60 MG Q8H IV Sterile Water (WATER FOR INJECTION) 0 ASDIR IV Aspirin (ECOTRIN) 81 MG DAILY PO Albuterol/Ipratropium (DUONEB) 3 ML RTQ4H NEB Azithromycin (ZITHROMAX) 500 MG Q24H IV (CAN) Sodium Chloride (0.9% Sodium Chloride) 250 ML Ceftriaxone Sodium (ROCEPHIN) 1,000 MG Q24H IV Sterile Water (WATER FOR INJECTION) 10 ML Perflutren Lipid Microsphere (DEFINITY) 2 ML ONCE PRN IV (CKD) Albuterol/Ipratropium (DUONEB) 3 ML X1ED STA NEB (DC) Azithromycin (ZITHROMAX) 500 MG X1ED STA IV (DC) Sodium Chloride (0.9% Sodium Chloride) 250 ML Ceftriaxone Sodium (ROCEPHIN) 1,000 MG X1ED STA IV (DC) Sterile Water (WATER FOR INJECTION) 10 ML Sodium Chloride (0.9% Sodium Chloride) 1,000 ML X1ED STA IV (DC) Physical Exam General appearance: altered mental status, awake Head/Eyes: atraumatic, normocephalic ENT: moist mucosal membranes Neck: no bruit/NL carotids, no JVD Cardiovascular: CV assessment: abnormal S1/S2, S3 present, irregular rhythm, tachycardia Murmur assessment: I/ HSM Respiratory: crackles, decreased breath sounds, shortness of breath, wheezing Abdomen: no pulsatile mass Lower extremity: LE assessment: edema, abnormal pedal pulse, abnormal peripheral pulse Neuro/LAW OFFICE MANAGER: altered mental status Considered stroke alert: no Skin: poor skin turgor Results Findings/Data: Laboratory Tests 11/22 1530 Blood Gas Puncture Site (DESCRIPTION ARTKIT) Right Radial ABG pH (7.35 - 7.45 pH units) 7.22 *L ABG pCO2 (35 - 45 mmHg) 82 *H ABG pO2 (80 - 100 mmHg) 159 H ABG PO2/FiO2 Ratio (200 mm/Hg) 159.0 L ABG HCO3 (22.0 - 26.0 mmol/L) 32.8 H ABG O2 Saturation (90 - 100 %) 99 ABG Base Excess (-3.0 - 3.0 mmol/L) 2.0 Chai Test (POSITIVE Circ.CHK) Yes Hgb O2 Saturation (95.0 - 100.0 % (linda)) 98.1 Carboxyhemoglobin (0.5 - 1.5 %) 0.5 Methemoglobin (0.0 - 0.0 %) 0.4 H Total Hemoglobin (12.0 - 18.0 GRAM/DL) 16.3 O2 Delivery Device (Descript) NRBMASK FiO2 (21 - 100 % (calc)) 100 Laboratory Tests 11/22 11/22 11/22 11/22 0942 0858 0533 0533 Chemistry Sodium (136 - 145 mmol/L) 143 Potassium (3.4 - 5.0 mmol/L) 5.0 Chloride (98 - 107 mmol/L) 101 Carbon Dioxide (21 - 32 mmol/L) 30 Anion Gap (4 - 15 GAP calc) 12 BUN (7 - 18 MG/DL) 38 H Creatinine (0.6 - 1.0 MG/DL) 1.4 H Glomerular Filtr Rate (>60 estGFR) 44 L Glucose (70 - 110 MG/DL) 190 H Lactic Acid (0.4 - 1.9 mmol/L) 1.6 2.5 *H Calcium (8.5 - 10.1 MG/DL) 9.4 Total Bilirubin (0.0 - 1.0 MG/DL) 0.5 Direct Bilirubin (0.0 - 0.3 MG/DL) 0.2 Indirect Bilirubin (0.2 - 1.2 MG/DL) 0.30 AST (15 - 37 Unit/L) 32 ALT (30 - 65 Unit/L) 49 Total Alk Phosphatase (50 - 136 Unit/L) 83 Troponin I High Sens (0 - 54 ng/L) 180.1 *H 352.2 *H NT-Pro-B Natriuret Pep (0 - 100 PG/ML) 6560 H Total Protein (6.4 - 8.2 G/DL) 7.8 Albumin (3.4 - 5.0 G/DL) 2.9 L Lipase (13 - 75 Unit/L) 25 Laboratory Tests 11/22 0533 Coagulation INR (0.8 - 1.2 INR Unit) 1.09 PTT (Nicholas) (26 - 35 SECONDS) 37.9 H PT Patient/Control Mix (9.3 - 12.9 SECONDS) 12.0 Laboratory Tests 11/22 0533 Hematology WBC (3.5 - 11.0 K/mm3) 12.0 H RBC (4.70 - 6.10 M/mm3) 5.55 Hgb (10.4 - 14.9 G/DL) 17.1 H Hct (31.5 - 44.1 %) 54.1 H MCV (84.5 - 98.6 Fl) 97.5 MCH (27.0 - 34.2 pg) 30.8 MCHC (31.5 - 34.0 G/DL) 31.6 RDW (11.5 - 14.5 SD) 14.0 Plt Count (150 - 450 K/mm3) 220 MPV (7.0 - 10.5 fL) 10.10 Neut % (Auto) (40 - 76 %) 94.2 H Lymph % (Auto) (20.5 - 51.1 %) 3.6 L [place] % (Auto) (1.7 - 9.3 %) 1.8 Eos % (Auto) (0.0 - 6.0 %) 0.0 Baso % (Auto) (0.0 - 2.0 %) 0.1 Neut # (Auto) (1.8 - 7.6 K/mm3) 11.3 H Lymph # (Auto) (0.6 - 3.2 K/mm3) 0.4 L [place] # (Auto) (0.3 - 1.1 K/mm3) 0.2 L Eos # (Auto) (0.0 - 0.4 K/mm3) 0.0 Baso # (Auto) (0.0 - 0.1 K/mm3) 0.0 Abs Immat Gran (auto) (0.00 - 0.03 x10 3/uL) 0.04 H Add Manual Diff (CRITERIA DIFF/SCN) NO Immature Gran % (0.0 - 5.0 %) 0.3 Nucleated RBC % (0.0 - 1.0 /100WBC%) 0.0 Laboratory Tests 11/22 1640 Serology SARS-CoV-2 Ag (Rapid) (Negative) NEGATIVE Microbiology Date/Time Procedure - Status Source Growth 11/22 0900 Influenza Virus Type B Antigen - COMP NASAL 11/22 0900 Influenza Virus Type A Antigen - COMP NASAL Laboratory Tests 11/22 11/22 0942 0533 Chemistry Troponin I High Sens (0 - 54 ng/L) 180.1 *H 352.2 *H Radiology Data: Recent Impressions: RADIOLOGY - XR CHEST 1 V 11/22 0545 Report Impression - Status: SIGNED Entered: 11/22/2024 0608 IMPRESSION: 1. Emphysematous chest. 2. Bilateral lower lung field infiltrate consistent with pneumonia. Impression By: Payal Goldberg M.D. CAT SCAN - CT CHEST W/O CONTRAST 11/22 1432 Report Impression - Status: SIGNED Entered: 11/22/2024 1545 IMPRESSION: 1. Findings consistent with multifocal pneumonia most severe at the lower lobes possibly due to aspiration. 2. Indeterminate pulmonary nodules for patients at low risk (minimal or absent history of smoking and of other known risk factors), recommend CT Chest at 3-6 months, then consider CT Chest at 18-24 months. For patients at high risk (history of smoking or of other known risk factors), recommend CT Chest at 3-6 months, then CT Chest at 18-24 months. (Reference: Joss) 3. Severe emphysema. COMMENTS: Consistent with the [place] [employer]'s Incidental Findings Committee white paper (J Am Barry Radiol 2018): Any incidental renal lesion less than 1 cm or classified as too small to characterize, or any incidental cystic renal lesion characterized as simple-appearing, is likely benign. No follow-up imaging is recommended for these lesions per consensus recommendations based on imaging criteria. REFERENCES: Joss Gutierrez, et al. Guidelines for Management of Incidental Pulmonary Nodules Detected on CT Images: From the Fleischner Society 2017. Radiology. 2017;284(1):228-243. Impression By: [email or web address] Monk M.D. Diagnosis, Assessment Plan Free Text DxA P Notes Free Text DxA P Notes: IMPRESSION: Respiratory failure Acute coronary syndrome - NSTEMI - most likely type II Acute systolic and diastolic CHF Tachyarrhythmia - PSVT ST Metabolic syndrome PLAN: Conservative medical management at present pending clinical course GDMT as feasibly perimitted Adjust cardiac Rx DAPT at 1902 RPT #: [id number] END OF REPORT [facility] 2024-11-22 12:57:00 [id number] [facility] [address] [place] [address] PATIENT NAME: CHEY NORMAN ADMIT DATE: 11/22/24 ACCOUNT NO: [id number] ROOM NO: FINESSE AGE: 54 REPORT TYPE: eECHOCARDIOGRAM REPORT SEX: F ADMITTING PHYSICIAN: Addison Rocha MD ATTENDING PHYSICIAN: Addison Rocha MD *[facility]* [address] [place] [id number] Transthoracic Echocardiogram Patient: Chey Norman Study Date: 11/22/2024 BP: 139 / 67 URN: [id number] Location: : 1970 Age: 54 Gender: F Height: 63.8 in / 162 cm Weight: 152.1 lb / 69 kg BMI/BSA: 26.3 kg/m 2 / 1.78 m 2 *Ordering Physician: * Addison Rocha *Interpreting Physician: * Alfie Angulo MD *Charger Tester: * Francis, Amy Indications: NSTEMI. Study data: Transthoracic echocardiogram. Procedure: A transthoracic echocardiogram was performed. Image quality was suboptimal. The study was technically limited due to breast implants. The parasternal window was low, thus no M-mode measurements were recorded. Complete 2D, complete spectral Doppler, and color Doppler. Location: Emergency department. Patient status: Inpatient. Patient room number: ER1. Study status: Routine. Heart rate: 89 bpm. Findings Left ventricle: The cavity size is normal. Wall thickness is normal. Systolic function appeared to be preservedl. The estimated ejection fraction is 50-54%. PATIENT NAME: CHEY NORMAN Wall motion is normal; there are no regional wall motion abnormalities. Grade I diastolic dysfunction. Right ventricle: The cavity size is normal. Systolic function is normal. The RV pressure during systole is 41 mm Hg. Left atrium: The atrium is normal in size. Right atrium: The atrium is normal in size. Aorta: Aortic root: The root is normal-sized. Aortic valve: The valve is structurally normal. The valve is trileaflet. There is no evidence of stenosis. There is no regurgitation. Mitral valve: The valve is structurally normal. There is no evidence of stenosis. There is no regurgitation. Tricuspid valve: The valve is structurally normal. There is trace regurgitation. Pulmonic valve: The valve is structurally normal. There is no regurgitation. Pericardium: There is no pericardial effusion. Pulmonary arteries: The main pulmonary artery is normal-sized. Systemic veins: Inferior vena cava: The IVC is normal-sized. Measurements Left ventricle Value Ref CRAIG, LAX 3.2 cm 3.8 - 5.2 ESD, LAX 2.1 cm 2.2 - 3.5 FS, LAX 36 % 27 - 45 IVS, ED 0.8 cm 0.6 - 0.9 PW, ED 0.9 cm 0.6 - 0.9 IVS/PW, ED 0.86 --------- EF 66 % 54 - 74 E/e', avg, TDI 9 <=14 LVOT Value Ref Diam, S 1.95 cm --------- Area 3.0 cm 2 --------- Peak rachid, S 1.2 m/sec --------- Mean rachid, S 0.83 m/sec --------- VTI, S 21.8 cm --------- Peak grad, S 6 mm Hg --------- Mean grad, S 3 mm Hg --------- SV 65 ml --------- SV/bsa 36 ml/m 2 --------- Right ventricle Value Ref TAPSE, MM 1.7 cm >=1.7 Pressure, S 41 mm Hg --------- Right atrium Value Ref Estimated RAP 20 mm Hg --------- Aortic valve Value Ref Peak v, S 1.3 m/sec --------- Mean v, S 0.92 m/sec --------- PATIENT NAME: CHEY NORMAN VTI, S 22.9 cm --------- Mean grad, S 4 mm Hg --------- Peak grad, S 6.9 mm Hg --------- LVOT/AV, VTI ratio 0.95 --------- LUIS A, VTI 2.83 cm 2 --------- LVOT/AV, Vpeak ratio 0.91 --------- LUIS A, Vmax 2.72 cm 2 --------- Mitral valve Value Ref Peak E 0.65 m/sec --------- Peak A 0.94 m/sec --------- Decel time 177 ms --------- Peak E/A ratio 0.69 --------- Tricuspid valve Value Ref TR peak v 2.3 m/sec <=2.8 Peak RV-RA grad, S 21 mm Hg --------- Pulmonary artery Value Ref Pressure, S 37.1 mm Hg --------- Pulmonary veins Value Ref A rev duration 120 ms --------- Conclusions Summary: Left ventricle: The cavity size is normal. Wall thickness is normal. Systolic function appeared to be preservedl. The estimated ejection fraction is 50-54%. Wall motion is normal; there are no regional wall motion abnormalities. Grade I diastolic dysfunction. Electronically signed by Alfie Angulo MD 11/22/2024 12:57 at 1257 PATIENT NAME: CHEY NORMAN [facility] 2024-11-22 12:23:00 [facility]) Pulmonary Consultation Note REPORT#:[id number] REPORT STATUS: Signed REPORT INITIALIZATION DATE:11/22/24 TIME:122 PATIENT: CHEY NORMAN UNIT #: [id number] ROOM/BED: [place] : 68 AGE: 54 SEX: F ATTEND: Addison Rocha MD ADM AUTHOR: Doron Espinosa MD REPT SERVICE DT/TIME: 11/22/24 1223 * ALL edits or amendments must be made on the electronic/computer document * History of Present Illness HPI HPI: 54-year-old female with history of obesity and COPD 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 Additional family history: Noncontributory Smoking status for patients 13 years old or older: Unknown,if ever smoked Allergies: Coded Allergies: No Known Allergies (11/22/24) Review of Systems All systems rev neg: except as marked Objective Physical Exam Vitals: Last Documented: Result Date Time Pulse Ox 97 11/22 1132 FiO2 50 11/22 1132 Pulse 102 11/22 1132 O2 Delivery BiPAP 11/22 0835 B/P 139/67 11/22 0730 B/P Mean 96 11/22 0730 Resp 16 11/22 0600 Temp 36.6 11/22 0507 Results Findings/Data: Laboratory Tests 11/22/24 0533: [Embedded Image Not Available] Laboratory Tests 11/22 11/22 11/22 11/22 0942 0858 0533 0533 Chemistry Sodium (136 - 145 mmol/L) 143 Potassium (3.4 - 5.0 mmol/L) 5.0 Chloride (98 - 107 mmol/L) 101 Carbon Dioxide (21 - 32 mmol/L) 30 Anion Gap (4 - 15 GAP calc) 12 BUN (7 - 18 MG/DL) 38 H Creatinine (0.6 - 1.0 MG/DL) 1.4 H Glomerular Filtr Rate (>60 estGFR) 44 L Glucose (70 - 110 MG/DL) 190 H Lactic Acid (0.4 - 1.9 mmol/L) 1.6 2.5 *H Calcium (8.5 - 10.1 MG/DL) 9.4 Total Bilirubin (0.0 - 1.0 MG/DL) 0.5 Direct Bilirubin (0.0 - 0.3 MG/DL) 0.2 Indirect Bilirubin (0.2 - 1.2 MG/DL) 0.30 AST (15 - 37 Unit/L) 32 ALT (30 - 65 Unit/L) 49 Total Alk Phosphatase (50 - 136 Unit/L) 83 Troponin I High Sens (0 - 54 ng/L) 180.1 *H 352.2 *H NT-Pro-B Natriuret Pep (0 - 100 PG/ML) 6560 H Total Protein (6.4 - 8.2 G/DL) 7.8 Albumin (3.4 - 5.0 G/DL) 2.9 L Lipase (13 - 75 Unit/L) 25 Laboratory Tests 11/22 0533 Coagulation INR (0.8 - 1.2 INR Unit) 1.09 PTT (Nicholas) (26 - 35 SECONDS) 37.9 H PT Patient/Control Mix (9.3 - 12.9 SECONDS) 12.0 Laboratory Tests 11/22 0533 Hematology WBC (3.5 - 11.0 K/mm3) 12.0 H RBC (4.70 - 6.10 M/mm3) 5.55 Hgb (10.4 - 14.9 G/DL) 17.1 H Hct (31.5 - 44.1 %) 54.1 H MCV (84.5 - 98.6 Fl) 97.5 MCH (27.0 - 34.2 pg) 30.8 MCHC (31.5 - 34.0 G/DL) 31.6 RDW (11.5 - 14.5 SD) 14.0 Plt Count (150 - 450 K/mm3) 220 MPV (7.0 - 10.5 fL) 10.10 Neut % (Auto) (40 - 76 %) 94.2 H Lymph % (Auto) (20.5 - 51.1 %) 3.6 L [place] % (Auto) (1.7 - 9.3 %) 1.8 Eos % (Auto) (0.0 - 6.0 %) 0.0 Baso % (Auto) (0.0 - 2.0 %) 0.1 Neut # (Auto) (1.8 - 7.6 K/mm3) 11.3 H Lymph # (Auto) (0.6 - 3.2 K/mm3) 0.4 L [place] # (Auto) (0.3 - 1.1 K/mm3) 0.2 L Eos # (Auto) (0.0 - 0.4 K/mm3) 0.0 Baso # (Auto) (0.0 - 0.1 K/mm3) 0.0 Abs Immat Gran (auto) (0.00 - 0.03 x10 3/uL) 0.04 H Add Manual Diff (CRITERIA DIFF/SCN) NO Immature Gran % (0.0 - 5.0 %) 0.3 Nucleated RBC % (0.0 - 1.0 /100WBC%) 0.0 Microbiology Date/Time Procedure - Status Source Growth 11/22 09 Influenza Virus Type B Antigen - COMP NASAL 11/22 0900 Influenza Virus Type A Antigen - COMP NASAL Radiology Data: Recent Impressions: RADIOLOGY - XR CHEST 1 V 11/22 0545 Report Impression - Status: SIGNED Entered: 11/22/2024 0608 IMPRESSION: 1. Emphysematous chest. 2. Bilateral lower lung field infiltrate consistent with pneumonia. Impression By: Payal Goldberg M.D. Free Text Obj Notes Free Text Obj Notes: General appearance: Alert and oriented not in distress Head and neck. Normocephalic atraumatic, no pallor no jaundice, no goiter CV: S1-S2 regular rate and rhythm, no murmur Lungs: Decreased breathing sounds bilaterally Abdomen: Soft lax nontender, no masses Extremities: No lower limb edema, no cyanosis no clubbing Neurologic: Alert and oriented, intact cranial nerves, no focal deficit Skin: Intact, no lesions Lymphatic: No lymphadenopathy appreciated Diagnosis, Assessment Plan Free Text DxA P Notes Free Text DxA P Notes: 1. Acute hypoxic respiratory failure possible hypercapnia 2. Bilateral pneumonia 3. COPD with acute exacerbation Seen and examined at bedside Evaluated initial workup Chest x-ray bilateral interstitial infiltrate consistent with atypical pneumonitis Will order CT chest without contrast Mycoplasma IgM and Legionella antigen Sputum studies COVID testing Urine drug screen Start IV steroids IV antibiotics Rocephin and azithromycin DuoNebs every 6 hours BiPAP intermittently and nightly Pulmicort and Perforomist at 1229 RPT #: [id number] END OF REPORT [facility] 2024-11-22 09:20:00 [facility] ([facility]) Hospitalist History Physical REPORT#:[id number] REPORT STATUS: Signed REPORT INITIALIZATION DATE:11/22/24 TIME:919 PATIENT: CHEY NORMAN UNIT #: [id number] ROOM/BED: [place] [address] : 68 AGE: 54 SEX: F ATTEND: Addison Rocha MD ADM AUTHOR: Addison Rocha MD REPT SERVICE DT/TIME: 11/22/24919 * ALL edits or amendments must be made on the electronic/computer document * See Addendum History of Present Illness HPI Chief complaint: SOB HPI: 54-year-old female with past medical history of COPD, hypertension, hyperlipidemia, CAD who was transferred from [facility] where she was diagnosed with COPD exacerbation and leukocytosis associated with hypoxic respiratory failure and shortness of breath. Patient states that she has a history of COPD and she was seen at [facility] where she was diagnosed with COPD exacerbation and white blood cell count was slightly elevated at 13.1. Patient was given breathing treatment as well as steroids and placed on BiPAP. Patient denies any pain. Patient was assessed in the ER and was placed on BiPAP and was admitted for further management History Past Medical Surgical Hx Additional medical history: Hypertension, hyperlipidemia, COPD, Additional surgical history: No significant past surgical history Family History Family history: Reports: Hypertension. Social History Smoking status for patients 13 years old or older: Former Smoker Medication/Allergy-Vaccine Hx Allergies: Coded Allergies: No Known Allergies (11/22/24) Review of Systems Unable to obtain due to: Bipap OBJECTIVE VS/I O: Vital Signs Date Temp Pulse Resp B/P B/P Mean Pulse Ox FiO2 11/22 97.8 90-104 14-24 104-139/63-74 91-96 97-99 50 Last Documented: Result Date Time Pulse Ox 99 11/22 0835 FiO2 50 11/22 0835 Pulse 90 11/22 0835 O2 Delivery BiPAP 11/22 0835 B/P 139/67 11/22 0730 B/P Mean 96 11/22 0730 Resp 16 11/22 0600 Temp 97.8 11/22 0507 24 hour I O ending at 0700: 11/22 0700 11/21 1900 Intake Total Output Total Balance Patient 152 lb Weight Weight Bed scale Measurement Method Patient Weight and BMI Weight (kg): 69.000 BMI: 26.1 Medications: Active Meds + DC'd Last 24 Hrs Albuterol/Ipratropium (DUONEB) 3 ML X1ED STA NEB (DC) Azithromycin (ZITHROMAX) 500 MG X1ED STA IV (DC) Sodium Chloride (0.9% Sodium Chloride) 250 ML Ceftriaxone Sodium (ROCEPHIN) 1,000 MG X1ED STA IV Sterile Water (WATER FOR INJECTION) 10 ML Sodium Chloride (0.9% Sodium Chloride) 1,000 ML X1ED STA IV (DC) Results Findings/Data: Laboratory Tests: 11/22 11/22 0533 0533 Chemistry Sodium (136 - 145 mmol/L) 143 Potassium (3.4 - 5.0 mmol/L) 5.0 Chloride (98 - 107 mmol/L) 101 Carbon Dioxide (21 - 32 mmol/L) 30 Anion Gap (4 - 15 GAP calc) 12 BUN (7 - 18 MG/DL) 38 H Creatinine (0.6 - 1.0 MG/DL) 1.4 H Glomerular Filtr Rate (>60 estGFR) 44 L Glucose (70 - 110 MG/DL) 190 H Lactic Acid (0.4 - 1.9 mmol/L) 2.5 *H Calcium (8.5 - 10.1 MG/DL) 9.4 Total Bilirubin (0.0 - 1.0 MG/DL) 0.5 Direct Bilirubin (0.0 - 0.3 MG/DL) 0.2 Indirect Bilirubin (0.2 - 1.2 MG/DL) 0.30 AST (15 - 37 Unit/L) 32 ALT (30 - 65 Unit/L) 49 Total Alk Phosphatase (50 - 136 Unit/L) 83 Troponin I High Sens (0 - 54 ng/L) 352.2 *H NT-Pro-B Natriuret Pep (0 - 100 PG/ML) 6560 H Total Protein (6.4 - 8.2 G/DL) 7.8 Albumin (3.4 - 5.0 G/DL) 2.9 L Lipase (13 - 75 Unit/L) 25 Coagulation INR (0.8 - 1.2 INR Unit) 1.09 PTT (Nicholas) (26 - 35 SECONDS) 37.9 H PT Patient/Control Mix (9.3 - 12.9 SECONDS) 12.0 Hematology WBC (3.5 - 11.0 K/mm3) 12.0 H RBC (4.70 - 6.10 M/mm3) 5.55 Hgb (10.4 - 14.9 G/DL) 17.1 H Hct (31.5 - 44.1 %) 54.1 H MCV (84.5 - 98.6 Fl) 97.5 MCH (27.0 - 34.2 pg) 30.8 MCHC (31.5 - 34.0 G/DL) 31.6 RDW (11.5 - 14.5 SD) 14.0 Plt Count (150 - 450 K/mm3) 220 MPV (7.0 - 10.5 fL) 10.10 Neut % (Auto) (40 - 76 %) 94.2 H Lymph % (Auto) (20.5 - 51.1 %) 3.6 L [place] % (Auto) (1.7 - 9.3 %) 1.8 Eos % (Auto) (0.0 - 6.0 %) 0.0 Baso % (Auto) (0.0 - 2.0 %) 0.1 Neut # (Auto) (1.8 - 7.6 K/mm3) 11.3 H Lymph # (Auto) (0.6 - 3.2 K/mm3) 0.4 L [place] # (Auto) (0.3 - 1.1 K/mm3) 0.2 L Eos # (Auto) (0.0 - 0.4 K/mm3) 0.0 Baso # (Auto) (0.0 - 0.1 K/mm3) 0.0 Abs Immat Gran (auto) (0.00 - 0.03 x10 3/uL) 0.04 H Add Manual Diff (CRITERIA DIFF/SCN) NO Immature Gran % (0.0 - 5.0 %) 0.3 Nucleated RBC % (0.0 - 1.0 /100WBC%) 0.0 Laboratory Tests 06/13/25 0533: [Embedded Image Not Available] Radiology data: Recent Impressions: RADIOLOGY - XR CHEST 1 V 11/22 0545 Report Impression - Status: SIGNED Entered: 11/22/2024 0608 IMPRESSION: 1. Emphysematous chest. 2. Bilateral lower lung field infiltrate consistent with pneumonia. Impression By: Payal Goldberg M.D. Free Text PE Notes Free Text PE Notes: Acute COPD exacerbation Monitor closely on telemetry Bronchodilators Continue steroids Robitussin as needed Continue home medications and titrate as needed NSTEMI Monitor under telemetry Cardiac enzymes trended Echocardiogram Started on aspirin statin Plavix Cardiology consult Acute hypoxic respiratory failure Placed on BiPAP Will try to wean down oxygen requirement X-ray findings noted Monitor under telemetry Pulmonology consulted Possible pneumonitis Chest x-ray findings noted We will get a CT of the chest to rule out any other cause Diabetes Insulin sliding scale Accu-Chek before every meal and at bedtime Will get an A1c Hypertension Antihypertensives titrated Continue home medications and titrate as needed Hyperlipidemia We will get a lipid panel and A1c Continue statin GI/DVT prophylaxis Advanced directive full code Diagnosis, Assessment Plan Problem List/A P: 1. COPD exacerbation 2. Elevated troponin 3. Pneumonia 4. CASSANDRA (acute kidney injury) Free Text A P: Acute COPD exacerbation Monitor closely on telemetry Bronchodilators Continue steroids Robitussin as needed Continue home medications and titrate as needed NSTEMI Monitor under telemetry Cardiac enzymes trended Echocardiogram Started on aspirin statin Plavix Cardiology consult Continue beta-blockers Acute hypoxic respiratory failure Placed on BiPAP Will try to wean down oxygen requirement X-ray findings noted Monitor under telemetry Pulmonology consulted Possible pneumonitis Chest x-ray findings noted We will get a CT of the chest to rule out any other cause Diabetes Insulin sliding scale Accu-Chek before every meal and at bedtime Will get an A1c Hypertension Antihypertensives titrated Continue home medications and titrate as needed Hyperlipidemia We will get a lipid panel and A1c Continue statin GI/DVT prophylaxis Advanced directive full code Total critical care time used was 48 minutes at 0910 Addendum 1: 11/24/24 1131 by Addison Rocha MD Physical Exam General appearance: alert, awake Head/Eyes: atraumatic, normocephalic ENT: dry mucosal membrane Neck: supple/no meningismus Cardiovascular: normal heart sounds, regular rate rhythm Respiratory: decreased breath sounds, rales Abdomen: soft, no distention Genitourinary: no bladder distention Extremities: decreased range of motion Musculoskeletal: decreased ROM Neuro/LAW OFFICE MANAGER: alert, no motor deficits, no sensory deficits Skin: dry, no rash Lymphatics: no lymphadenopathy Psychiatry: anxious at 1131 RPT #: [id number] END OF REPORT [facility] 2024-11-22 05:41:00 [facility] ([facility]) EMERGENCY PROVIDER REPORT REPORT#:[id number] REPORT STATUS: Signed DATE:11/22/24 TIME:540 PATIENT: CHEY NORMAN UNIT #: [id number] ROOM/BED: [place] [address] : 68 AGE: 54 SEX: F PCP PHYS: No Primary or Family Physician SERVICE AUTHOR: Cr Machado DO REP SRV REP SRV TM: 0541 * ALL edits or amendments must be made on the electronic/computer document * Cr Machado 11/22/24 0541: HPI-Dyspnea/Wheezing General Initial Greet Date/Time 11/22/24 0507 Presentation Chief Complaint Shortness of breath Free Text HPI Notes Free Text HPI Notes Patient is a 54-year-old female presenting for shortness of breath. Patient states that she has a history of COPD and she was seen at [facility] where she was diagnosed with COPD exacerbation and white blood cell count was slightly elevated at 13.1. Patient was given breathing treatment as well as steroids and placed on BiPAP. Patient denies any pain. Review of Systems ROS Statements All systems rev neg except as marked. Free Text ROS Notes Free Text ROS Notes Constitutional: No Fatigue, Malaise; No Fever, Chills, EYES: No redness, HENT: Negative for ear pain, sore throat, rhinorrhea, congestion, Respiratory: Positive for dyspnea on exertion, Shortness of breath, Cough, non- productive, Cardiovascular: Denies: Palpitations, chest pain, GI: Denies: Diarrhea, Nausea, Vomiting, Abdominal pain, : Negative for dysuria, urinary frequency changes. NEURO: No focal deficit, no headache, no lightheadedness/dizziness, HEM: No bruising, MSK: No back pain. no neck pain, SKIN: Denies rash, PSYCH: no anxiety, Past Medical History - Adult Stated Complaint TRANFER FROM [place]; COPD EXAC; RESP DISTRESS Allergies Coded Allergies: No Known Allergies (11/22/24) Smoking status for patients 13 years old or older: Unknown,if ever smoked Physical Exam Vital Signs Vital Signs First Documented: Result Date Time Pulse Ox 97 11/22 0507 B/P 104/73 11/22 0507 O2 Delivery BiPAP 11/22 0507 Temp 97.8 11/22 0507 Pulse 103 / 0507 Resp 14 11/22 0507 FiO2 50 11/22 0518 B/P Mean 91 11/22 0520 Last Documented: Result Date Time Pulse Ox 98 11/22 0606 O2 Delivery CPAP 11/22 0606 B/P 123/74 11/22 0600 B/P Mean 94 11/22 0600 Pulse 96 11/22 0600 Resp 16 11/22 0600 FiO2 50 / 0518 Temp 97.8 11/22 0507 Review of Vital Signs Reviewed Free Text PE Notes Free Text PE Notes GENERAL/CONST: Awake, Alert, No acute distress, Cooperative EYES: EOM intact HENT: Airway patent, Mucous membranes moist, RESP/CHEST: Wheezing in all lung field, Breath sounds = bilat, moderate respiratory distress, tachypnea present CARDIOVASCULAR: Tachycardia present, Regular rhythm, Heart sounds NL, ABDOMEN/GI : Soft, Non-tender, No guarding, negative Marie's sign, negative McBurney's point, MS: Non-tender, no pitting edema to BLE, SKIN No rash, Warm, Dry, NEUROLOGIC: Oriented X4, Speech NL, CN II-XII intact, PSYCHIATRIC: Nonanxious appearing, Interpretation Diagnostics Lab Results Interpretation Results Laboratory Tests 11/22/24 0533: [Embedded Image Not Available] Laboratory Tests: 11/2233 0533 Chemistry Sodium (136 - 145 mmol/L) 143 Potassium (3.4 - 5.0 mmol/L) 5.0 Chloride (98 - 107 mmol/L) 101 Carbon Dioxide (21 - 32 mmol/L) 30 Anion Gap (4 - 15 GAP calc) 12 BUN (7 - 18 MG/DL) 38 H Creatinine (0.6 - 1.0 MG/DL) 1.4 H Glomerular Filtr Rate (>60 estGFR) 44 L Glucose (70 - 110 MG/DL) 190 H Lactic Acid (0.4 - 1.9 mmol/L) 2.5 *H Calcium (8.5 - 10.1 MG/DL) 9.4 Total Bilirubin (0.0 - 1.0 MG/DL) 0.5 Direct Bilirubin (0.0 - 0.3 MG/DL) 0.2 Indirect Bilirubin (0.2 - 1.2 MG/DL) 0.30 AST (15 - 37 Unit/L) 32 ALT (30 - 65 Unit/L) 49 Total Alk Phosphatase (50 - 136 Unit/L) 83 Troponin I High Sens (0 - 54 ng/L) 352.2 *H NT-Pro-B Natriuret Pep (0 - 100 PG/ML) 6560 H Total Protein (6.4 - 8.2 G/DL) 7.8 Albumin (3.4 - 5.0 G/DL) 2.9 L Lipase (13 - 75 Unit/L) 25 Coagulation INR (0.8 - 1.2 INR Unit) 1.09 PTT (Nicholas) (26 - 35 SECONDS) 37.9 H PT Patient/Control Mix (9.3 - 12.9 SECONDS) 12.0 Hematology WBC (3.5 - 11.0 K/mm3) 12.0 H RBC (4.70 - 6.10 M/mm3) 5.55 Hgb (10.4 - 14.9 G/DL) 17.1 H Hct (31.5 - 44.1 %) 54.1 H MCV (84.5 - 98.6 Fl) 97.5 MCH (27.0 - 34.2 pg) 30.8 MCHC (31.5 - 34.0 G/DL) 31.6 Plt Count (150 - 450 K/mm3) 220 Microbiology: Date/Time Procedure - Status Source Growth 11/23 647 MRSA Screen - ORD NASAL 11/22 532 Blood Culture - RECD BLOOD 11/22 532 Blood Culture - RECD BLOOD 11/22 512 Influenza Virus Type B Antigen - ORD NASAL 11/22 512 Influenza Virus Type A Antigen - ORD NASAL Recent Impressions: RADIOLOGY - XR CHEST 1 V 11/22 0545 Report Impression - Status: SIGNED Entered: 11/22/2024 0608 IMPRESSION: 1. Emphysematous chest. 2. Bilateral lower lung field infiltrate consistent with pneumonia. Impression By: Payal Goldberg M.D. ECG #1 Interpretation Text/Dict Note EKG shows sinus tachycardia with a rate of 102 bpm, NJ interval 138, QRS 66, QTc 440. There are no significant ST depressions or elevations. EKG was reviewed and interpreted by de Date 11/22/24 Time 05 Re-Evaluation MDM ED Course Medication(s) Ordered Medication(s) Ordered: Anti-Infective Agents Sig/Elma Start time Last Medication Dose Route Stop Time Status Admin Azithromycin 500 MG X1ED STA 11/22 0513 DC 11/22 Sodium Chloride 250 ML IV 11/22 0612 0543 Ceftriaxone Sodium 1,000 MG X1ED STA 11/22 0513 AC 11/22 Sterile Water 10 ML IV 11/22 1512 0543 Autonomic Drugs Sig/Elma Start time Last Medication Dose Route Stop Time Status Admin Albuterol/Ipratropium 3 ML X1ED STA 11/22 0523 DC 11/22 NEB 11/22 0524 0548 Electrolytic, Caloric, And Pascual Sig/Elma Start time Last Medication Dose Route Stop Time Status Admin Sodium Chloride 1,000 ML X1ED STA 11/22 0511 DC 11/22 IV 11/22 0611 0543 Patient Discharge Departure Vital Signs/Condition Vital Signs First Documented: Result Date Time Pulse Ox 97 11/22 0507 B/P 104/73 11/22 0507 O2 Delivery BiPAP 11/22 0507 Temp 97.8 11/22 0507 Pulse 103 / 0507 Resp 14 11/22 0507 FiO2 50 / 0518 B/P Mean 91 11/22 0520 Last Documented: Result Date Time Pulse Ox 98 / 0606 O2 Delivery CPAP 11/22 0606 B/P 123/74 11/22 0600 B/P Mean 94 / 0600 Pulse 96 / 0600 Resp 16 11/22 0600 FiO2 50 / 0518 Temp 97.8 11/22 0507 All vital signs available at the time of this entry have been reviewed. Emily Cherry 11/22/24 0649: Interpretation Diagnostics Lab Results Interpretation Lab Imaging Statement Laboratory radiographic studies reviewed and considered in the medical decision-making. Point of Care Testing Pulse Oximetry Pulse Ox % 98 On: BiPAP Interpretation Interpreted by me, Pulse oximetry normal Time 0606 Re-Evaluation [facility] )( Re-Evaluation/Progress #1 Text/Dict Note I received signout of this patient from previous physician at 0600 Per previous provider, patient is presenting today for COPD exacerbation. Pending ABG prior to admission. pH 7.32 CO2 53.2 PO288 HCO3 26.8 On reassessment, patient remains in stable condition. No complaints at this time. Troponin elevation without EKG consistent with ACS. Previous troponin from outside hospital (11/22/2024 @ 00:40 = 358). Labs also demonstrate leukocytosis. Patient has already received sepsis bundle Time of Re-Eval 0649 )( Re-Eval Status Improved Findings/Social Determinants Presentation Acute Severity Evaluation Serious condition Relevant Comorbidities COPD Patient Discharge Departure Clinical Impression Clinical Impression Primary Impression: COPD exacerbation Secondary Impressions: CASSANDRA (acute kidney injury), Elevated troponin, Pneumonia Disposition Decision Hospitalize Hosp Physician Name Addison Rocha MD [facility] Physician Hospitalist Request Time 0647 Request Date 11/22/24 )( Accepts Hospitalization Yes )( Reason for Hospitalization COPD exacerbation )( Accepted Time 0657 )( Accepted Date 11/22/24 Call Information will see patient Critical Care Time Spent (minutes): 35 Services Performed Patient management by me, Time spent at bedside, Reviewing test results, Reviewing imaging, Discussing patient care, Documentation in record Separately billable procedures excluded from time. Patient was critically ill due to: COPD exacerbation secondary to pneumonia, complicated by elevated troponin and acute kidney injury My treatment and management were: IV antibiotics DuoNeb breathing treatment BiPAP therapy Discussion with consultants Admission for further management Cardiac monitoring CC Note 1 Total critical care time 35 minutes. Total critical care time documented does not include time spent on separately billed procedures or the services of residents, students, nurses or physician assistants. I personally saw and examined the patient. I have reviewed all diagnostic interpretations and treatment plans as written. I was present for the villalobos portions of any procedures performed and the inclusive time noted in any critical care statement. Critical care time includes patient management by me, time spent at the patients bedside, time to review lab and imaging results, discussing patient care, documentation in the medical record, and time spent with the family or caregiver. Quality Measures Sepsis Bundle Initiated 18 years or older, Lactate ordered, Blood cultures ordered, IV antibiotics ordered, IV fluid bolus ordered at 0617 at 0659 RPT #: [id number] END OF REPORT [facility]
[2025-02-03] MEDS ORDERED: IPRATROPIUM BROM 0.5MG/2.5ML ONE (23:46)
[2025-02-03] MEDS ORDERED: LEVALBUTEROL 1.25 MG/3 ML NEB ONE (23:47)
[2025-02-03] MEDS ORDERED: METHYLPREDNISOLONE 125 MG INJ ONE (23:47)
[2025-02-04] MEDS ORDERED: LEVALBUTEROL 1.25 MG/3 ML NEB ONE
[2025-02-04] MEDS ORDERED: IPRATROPIUM BROM 0.5MG/2.5ML ONE
[2025-02-04 00:09] LABS: Absolute Lymphocytes (CBC) 0.6 K/uL (0.7-4.9); Hematocrit 43.7 % (36.0-45.0); Hemoglobin 14.5 g/dL (12.0-15.0); MCH 31.0 pg (27.0-35.0); MCHC 33.1 g/dL (32.0-36.0); MCV 93.5 fL (80-100); MPV 9.0 fL (7.6-11.3); Nucleated RBC Absolute Count 0.1 (0-0); Nucleated Red Blood Cells % 0.2 % (0-0); RBC Red Blood Cell Count 4.67 M/uL (3.86-4.86); White Blood Count 26.40 thou/uL (4.3-10.9)
[2025-02-04 00:16] LABS: PT Prothrombin Time 14.7 SECONDS (10-13.0); Protime INR 1.31
[2025-02-04] MEDS ORDERED: Levofloxacin 750mg IV 750 MG/150 ML BAG IV ONE (00:18)
[2025-02-04 00:29] LABS: ALT/SGPT 30.0 U/L (13-56); AST/SGOT 16.0 U/L (15-37); Albumin 2.1 g/dL (3.4-5.0); Albumin/Globulin Ratio 0.4 (1.1-1.8); Alkaline Phosphatase 107.0 U/L (45-117); Anion Gap 18.2 mEq/L (5.0-15.0); BUN Blood Urea Nitrogen 65.0 mg/dL (7-18); Bilirubin Indirect, Calculated 0.3 mg/dL (0.2-0.8); Globulin 5.2 g/dL (2.3-3.5); Glucose Level 226.0 mg/dL (74-106); Magnesium 2.6 mg/dL (1.6-2.4); NT PRO-BNP 7150.0 pg/mL (<125); Potassium 4.2 mEq/L (3.5-5.1); Troponin High Sensitivity 41.0 pg/mL (<58.9)
[2025-02-04] MEDS ORDERED: VANCOMYCIN 1 GM/VIAL ONE (00:39)
[2025-02-04] MEDS ORDERED: NA CHLORIDE 0.9% 250 ML ONE (00:39)
--- NOTE | 2025-02-04 00:43 | ER ---
Nurse's Notes [facility] Name: Elma Chavez Age: 54 yrs Sex: Female : 1970 Arrival Date: 02/03/2025 Time: 23:08 Bed 4 Private MD: Diagnosis: Pneumonia due to other specified bacteria;COPD/ Chronic obstructive pulmonary disease with (acute) exacerbation;Acute kidney failure, unspecified;Elevated white blood cell count;Severe sepsis with septic shock Presentation: 02/03 23:30 Chief complaint: EMS states: Pt reports not feeling well for the past week. Called her jb4 and was not seen, just put on an antibiotic. She has been having diarrhea as well. Her B/p was in the 90's so we gave 250ml bolus of NS, and 2 of albuterol and 1 of atrovent. Coronavirus screen: At this time, the client does not indicate any symptoms associated with coronavirus-19. Ebola Screen: No symptoms or risks identified at this time. 23:30 Method Of Arrival: EMS: [place] [id number] 23:30 Initial Sepsis Screen: Does the patient meet any 2 criteria? No. Patient's initial jb4 sepsis screen is negative. Does the patient have a suspected source of infection? No. Patient's initial sepsis screen is negative. Risk Assessment: Do you want to hurt yourself or someone else? Patient reports no desire to harm self or others. Onset of symptoms was January 28, 2025. Transition of care: patient was not received from another setting of care. 23:30 Acuity: AZRA 1 jb4 Triage Assessment: 23:30 General: Appears distressed, uncomfortable, ill, obese, Behavior is cooperative, jb4 anxious, restless. Pain: Denies pain. Cardiovascular: Pt diaphoretic, skin is mottled. Respiratory: Reports shortness of breath at rest on exertion Airway is patent Respiratory effort is labored, gasping, with nasal flaring, with retractions, Respiratory pattern is symmetrical, tachypnea Onset: The symptoms/episode began/occurred gradually, the patient has severe shortness of breath. Derm: Skin is intact, Skin is diaphoretic, Skin is mottled, Skin temperature is cold. Musculoskeletal: Circulation, motion, and sensation intact. Range of motion: intact in all extremities. Historical: - Allergies: 23:30 No Known Allergies; jb4 - PMHx: 23:30 COPD; jb4 - Immunization history:: Adult Immunizations unknown. - Infectious Disease History:: Denies. - Family history:: not pertinent. - Social history:: Smoking status: unknown. Screenin/26 00:25 [facility] ED Fall Risk Assessment (Adult) History of falling in the last 3 months, lg3 including since admission No falls in past 3 months (0 pts) Confusion or Disorientation No (0 pts) Intoxicated or Sedated No (0 pts) Impaired Gait No (0 pts) Mobility Assist Device Used No (0 pt) Altered Elimination No (0 pt) Score/Fall Risk Level 0 - 2 = Low Risk Oriented to surroundings, Maintained a safe environment, Educated pt \T\ family on fall prevention, incl call for assistance when getting out of bed, Assessed \T\ reinforced patient's understanding of fall precautions. Abuse screen: Denies threats or abuse. Denies injuries from another. Nutritional screening: No deficits noted. Tuberculosis screening: No symptoms or risk factors identified. Assessment: 00:25 General: Appears distressed, uncomfortable, Behavior is anxious, restless. Pain: Denies lg3 pain. Neuro: Mendez Agitation-Sedation Scale (RASS): +1 Restless Level of Consciousness is awake, alert, obeys commands, Oriented to person, place, time, situation. Cardiovascular: Capillary refill is > 3 seconds is sluggish JVD is present. Respiratory: Airway is patent Respiratory effort is labored, gasping, with nasal flaring, with retractions, Respiratory pattern is tachypnea. GI: Abdomen is round non-distended, obese, Reports diarrhea. : No signs and/or symptoms were reported regarding the genitourinary system. EENT: No deficits noted. No signs and/or symptoms were reported regarding the EENT system. Derm: Skin is intact, Skin is diaphoretic, Skin is mottled, Skin temperature is cool. Musculoskeletal: Circulation, motion, and sensation intact. Range of motion: intact in all extremities. 00:52 Reassessment: NURSE TO NURSE REPORT GIVEN TO EMELIA WATKINS. ha1 00:55 Cardiovascular: Rhythm is sinus tachycardia. Respiratory: Breath sounds are diminished lg3 bilaterally. Vital Signs: 02/03 23:30 BP 122 / 88; Pulse 135; Resp 39; Temp 98(O); Pulse Ox 84% on 4 lpm NC; Weight 68.04 kg jb4 (R); Height 5 ft. 4 in. ; 02/04 00:37 BP 89 / 75; Pulse 133; Resp 27; Temp 98.2(Ca); Pulse Ox 97% on BiPAP; lg3 00:50 BP 102 / 66; Pulse 75; Resp 21 S; Temp 99.6(Ca); Pulse Ox 100% on BiPAP; lg3 01:30 BP 117 / 69; Pulse 89; Resp 22; Pulse Ox 100% on BiPAP; lg3 02/03 23:30 Body Mass Index 25.75 (68.04 kg, 162.56 cm) jb4 02/03 23:30 put on 6L satting 93%, reports feeling tired of breathing, provider notified. jb4 ED Course: 23:30 Patient arrived in ED. rv1 23:30 Hardy Vickers MD is Attending Physician. kushal 23:30 Arm band placed on right wrist. jb4 02/04 00:00 XRAY Chest (1 view) In Process Unspecified. EDMS 00:12 Triage completed. jb4 00:15 Troponin HS Sent. jb4 00:15 NT PRO-BNP Sent. jb4 00:15 PT-INR Sent. jb4 00:15 Magnesium Sent. jb4 00:15 LFT's Sent. jb4 00:15 Basic Metabolic Panel Sent. jb4 00:25 Patricia Cantrell, RN is Primary Nurse. lg3 00:25 Patient has correct armband on for positive identification. Placed in gown. Bed in low lg3 position. Call light in reach. Side rails up X2. Client placed on continuous cardiac and pulse oximetry monitoring. NIBP monitoring applied. abatement worker on. Door closed. Noise minimized. Warm blanket given. Pillow given. 00:25 Report received from EMELIA [place]. lg3 00:25 Schaeffer cath inserted, using sterile technique, 16 Fr., by ED staff, balloon inflated, to lg3 gravity drainage. Inserted saline lock: 18 gauge in right antecubital area, using aseptic technique. 00:25 Inserted saline lock: 20 gauge in left antecubital area, using aseptic technique. lg3 00:38 BIPAP Sent. lg3 01:20 ABG Sent. eb1 01:29 No provider procedures requiring assistance completed. Patient transferred, IV remains lg3 in place. Administered Medications: 02/03 23:50 Drug: MethylPrednisoLONE IVP 125 mg IVP once Route: IVP; Site: right antecubital; [facility] 02/04 01:31 Follow up: Response: No adverse reaction 3 02/03 23:50 Drug: Levalbuterol Inhalation 3.75 mg Inhalation once Route: Inhalation; [facility] 02/04 01:31 Follow up: Response: No adverse reaction 3 02/03 23:50 Drug: Ipratropium Inhalation Aerosol 0.5 mg Inhalation once Route: Inhalation; [facility] 02/04 01:31 Follow up: Response: No adverse reaction lg3 00:38 Drug: levofloxacin IVPB 750 mg 150 ml IVPB once over 90 mins Volume: 150 ml; Route: lg3 IVPB; Infused Over: 90 mins; Site: left antecubital; 01:30 Follow up: IV Status: Infusion continued upon transfer lg3 00:48 Drug: NS 0.9% IV 1000 ml IV at 125 ml/hr once Route: IV; Rate: 125 ml/hr; Site: left lg3 antecubital; 01:31 Follow up: IV Status: Infusion continued upon transfer lg3 00:50 Drug: vancoMYCIN IVPB 1 grams IVPB once over 2 hrs Route: IVPB; Infused Over: 2 hrs; lg3 Site: right antecubital; 01:30 Follow up: IV Status: Infusion continued upon transfer lg3 Medication: 01:30 VIS not applicable for this client. lg3 Outcome: 00:42 ER care complete, transfer ordered by MD. fatima 01:29 Transferred by helicopter to [facility], Transfer form lg3 completed. 01:29 critical 01:29 Instructed on the need for transfer, Demonstrated understanding of instructions, 01:31 Patient left the ED. lg3 Signatures: Dispatcher [employer] EDMS Hardy Vickers MD MD cha Bryson, James, RN RN jb4 Dorys Parekh RN RN [email or web address] Patricia Cantrell RN RN lg3 Yani Franklin RN RN [address] [facility]
--- NOTE | 2025-02-04 00:43 | EDPHYS ---
Physician Documentation [facility] Name: Elma Chavez Age: 54 yrs Sex: Female : 1970 Arrival Date: 02/03/2025 Time: 23:08 Bed 4 Private MD: ED Physician Hardy Vickers HPI: 02/04 00:23 This 54 yrs old Female presents to ER via EMS with complaints of Shortness Of kushal Breath. 00:23 The patient has shortness of breath with light activity. Onset: The symptoms/episode kushal began/occurred 4 day(s) ago. Duration: The symptoms are continuous, and are steadily getting worse. The patient's shortness of breath is aggravated by exertion, light activity, supine position, talking, walking, is alleviated by elevating head, nebulizer treatment, pursed lip breathing, rest, application of supplemental oxygen. WEAK FEVER, SICK FOR 4 DAYS. Associated signs and symptoms: Pertinent positives: non-productive cough. Severity of symptoms: At their worst the symptoms were moderate in the emergency department the symptoms are unchanged. The patient has experienced similar episodes in the past, several times. Historical: - Allergies: 02/03 23:30 No Known Allergies; jb4 - PMHx: 23:30 COPD; jb4 - Immunization history:: Adult Immunizations unknown. - Infectious Disease History:: Denies. - Family history:: not pertinent. - Social history:: Smoking status: unknown. ROS: 02/04 00:31 Eyes: Negative for injury, pain, redness, and discharge, ENT: Negative for injury, kushal pain, and discharge, Cardiovascular: Positive for palpitations, Respiratory: Positive for cough, dyspnea on exertion, orthopnea, shortness of breath, at rest. Exam: 00:31 Eyes: Pupils equal round and reactive to light, extra-ocular motions intact. Lids and kushal lashes normal. Conjunctiva and sclera are non-icteric and not injected. Cornea within normal limits. Periorbital areas with no swelling, redness, or edema. ENT: Nares patent. No nasal discharge, no septal abnormalities noted. Tympanic membranes are normal and external auditory canals are clear. Oropharynx with no redness, swelling, or masses, exudates, or evidence of obstruction, uvula midline. Mucous membranes moist. Neck: Trachea midline, no thyromegaly or masses palpated, and no cervical lymphadenopathy. Supple, full range of motion without nuchal rigidity, or vertebral point tenderness. No Meningismus. Back: No spinal tenderness. No costovertebral tenderness. Full range of motion. Skin: Warm, dry with normal turgor. Normal color with no rashes, no lesions, and no evidence of cellulitis. Neuro: Awake and alert, GCS 15, oriented to person, place, time, and situation. Cranial nerves II-XII grossly intact. Motor strength 5/5 in all extremities. Sensory grossly intact. Cerebellar exam normal. Normal gait. Psych: Awake, alert, with orientation to person, place and time. Behavior, mood, and affect are within normal limits. 00:31 Cardiovascular: Rate: tachycardic, actual rate is 135 bpm, Rhythm: regular, Pulses: Pulses are 4+ in bilateral radial, brachial, femoral, popliteal, posterior tibial and and dorsalis pedis arteries.. Heart sounds: normal, Edema: is not appreciated, JVD: is not appreciated, 00:31 ECG was reviewed by the Attending Physician. 00:49 ECG was reviewed by the Attending Physician. [facility] Vital Signs: 02/03 23:30 BP 122 / 88; Pulse 135; Resp 39; Temp 98(O); Pulse Ox 84% on 4 lpm NC; Weight 68.04 kg jb4 (R); Height 5 ft. 4 in. ; 02/04 00:37 BP 89 / 75; Pulse 133; Resp 27; Temp 98.2(Ca); Pulse Ox 97% on BiPAP; lg3 00:50 BP 102 / 66; Pulse 75; Resp 21 S; Temp 99.6(Ca); Pulse Ox 100% on BiPAP; lg3 01:30 BP 117 / 69; Pulse 89; Resp 22; Pulse Ox 100% on BiPAP; lg3 02/03 23:30 Body Mass Index 25.75 (68.04 kg, 162.56 cm) jb4 02/03 23:30 put on 6L satting 93%, reports feeling tired of breathing, provider notified. jb4 MDM: 23:30 Medical Screening Exam initiated [facility] 23:38 Differential diagnosis: Anemia Anxiety Reaction asthma, Bronchitis CHF exacerbation, kushal Chronic Obstructive Pulmonary Disease Myocardial Infarction pneumonia, Pneumothorax Psychogenic pulmonary edema, Pulmonary Embolism reactive airway disease, Sepsis Unstable Angina. Antibiotic administration: Not indicated, the patient does not have an appreciated infiltrate. Differential Diagnosis. Immunization status: Influenza vaccine:. Data reviewed: vital signs, nurses notes, lab test result(s), EKG, radiologic studies. Consideration of Admission/Observation Escalation of care including admission/observation considered. I considered the following discharge prescriptions or medication management in the emergency department Medications were administered in the Emergency Department. See MAR. Independent interpretation of the following test(s) in the Emergency Department EKG: See my EKG interpretation above. Test considered but Not performed: Ultrasound NO 2 D ECHO. Care significantly affected by the following chronic conditions: Hypertension, Obesity. Counseling: I had a detailed discussion with the patient and/or guardian regarding the historical points, exam findings, and any diagnostic results supporting the discharge/admit diagnosis, lab results, radiology results, the need for outpatient follow up, for definitive care, a barrel inspector, a family practitioner. 02/04 00:50 Post IV fluid administration reassessment for Sepsis: Client prescribed 30 mL/kg IVF. [facility] Sepsis focused reassessment complete. Lungs: Diminished air movement noted. Capillary refill examination performed. Capillary refill noted to be < 2 seconds. ED course: NO BEDS AT [facility] OR , CANT WAITLIST, TO [facility] ICU PER PATIENT. 01:12 ED course: NO BEDS [facility], DECLINED WAITLIST SECONDARY TO PATIENTS CONDITION CONDITION, [facility] HAD ICU READY IMMEDIATELY, DR MAJANO ACCEPTED , [facility] CALLED. 02/03 23:31 Order name: Basic Metabolic Panel; Complete Time: 00:36 [facility] 02/03 23:31 Order name: CBC with Diff [facility] 02/03 23:31 Order name: LFT's; Complete Time: 00:36 [facility] 02/03 23:31 Order name: Magnesium; Complete Time: 00:36 [facility] 02/03 23:31 Order name: NT PRO-BNP; Complete Time: 00:36 [facility] 02/03 23:31 Order name: PT-INR; Complete Time: 01:11 [facility] 02/03 23:31 Order name: Troponin HS; Complete Time: 00:36 [facility] 02/03 23:43 Order name: ABG [facility] 02/03 23:43 Order name: Blood Culture Adult (2) [facility] 02/03 23:43 Order name: Lactate w/ 2H reflex if indic. [facility] 02/03 23:43 Order name: COVID-19 Ag + Flu A+B Ag [facility] 02/04 00:15 Order name: Manual Differential EDMS 02/04 00:33 Order name: PTT, Activated Partial Thromb; Complete Time: 01:11 EDMS 02/03 23:31 Order name: XRAY Chest (1 view) [facility] 02/03 23:43 Order name: BIPAP [facility] 02/04 00:18 Order name: EKG; Complete Time: 00:18 [facility] 02/03 23:31 Order name: Cardiac monitoring; Complete Time: 00:15 [facility] 02/03 23:31 Order name: EKG - Nurse/Tech; Complete Time: 00:38 [facility] 02/03 23:31 Order name: IV Saline Lock; Complete Time: 00:15 [facility] 02/03 23:31 Order name: Labs collected and sent; Complete Time: 00:15 [facility] 02/03 23:31 Order name: O2 Per Protocol; Complete Time: 23:43 [facility] 02/03 23:31 Order name: O2 Sat Monitoring; Complete Time: 23:43 [facility] 02/03 23:59 Order name: Schaeffer; Complete Time: 00:32 [facility] 02/04 00:18 Order name: Accucheck; Complete Time: 00:38 [facility] 02/04 00:18 Order name: IV Saline Lock - Large Bore; Complete Time: 00:38 [facility] 02/04 00:18 Order name: Vital Signs; Complete Time: 00:38 [facility] EC:49 Rate is 133 beats/min. Rhythm is regular. QRS [place] is Normal. TN interval is normal. [facility] QRS interval is normal. QT interval is normal. No Q waves. T waves are Normal. No ST changes noted. Clinical impression: Sinus tachycardia and No evidence of ischemia. Interpreted by me. Reviewed by me. Administered Medications: 02/03 23:50 Drug: MethylPrednisoLONE IVP 125 mg IVP once Route: IVP; Site: right antecubital; [facility] 02/04 01:31 Follow up: Response: No adverse reaction [facility] 02/03 23:50 Drug: Levalbuterol Inhalation 3.75 mg Inhalation once Route: Inhalation; [facility] 02/04 01:31 Follow up: Response: No adverse reaction [facility] 02/03 23:50 Drug: Ipratropium Inhalation Aerosol 0.5 mg Inhalation once Route: Inhalation; [facility] 02/04 01:31 Follow up: Response: No adverse reaction [facility] 00:38 Drug: levofloxacin IVPB 750 mg 150 ml IVPB once over 90 mins Volume: 150 ml; Route: lg3 IVPB; Infused Over: 90 mins; Site: left antecubital; 01:30 Follow up: IV Status: Infusion continued upon transfer lg3 00:48 Drug: NS 0.9% IV 1000 ml IV at 125 ml/hr once Route: IV; Rate: 125 ml/hr; Site: left lg3 antecubital; 01:31 Follow up: IV Status: Infusion continued upon transfer lg3 00:50 Drug: vancoMYCIN IVPB 1 grams IVPB once over 2 hrs Route: IVPB; Infused Over: 2 hrs; lg3 Site: right antecubital; 01:30 Follow up: IV Status: Infusion continued upon transfer lg3 Disposition: 00:35 Critical Care:. kushal Disposition Summary: 02/04/25 00:42 Transfer Ordered Notes: Transfer Location: [facility] kushal Reason: Higher level of care kushal Condition: Serious kushal Problem: new kushal Symptoms: have improved kushal Accepting Physician: TO DR MAJANO ICU(02/04/25 01:31) lg3 Diagnosis - Pneumonia due to other specified bacteria kushal - COPD/ Chronic obstructive pulmonary disease with (acute) exacerbation kushal - Acute kidney failure, unspecified kushal - Elevated white blood cell count kushal - Severe sepsis with septic shock kushal Discharge Instructions: - Discharge Summary Sheet kushal - Hypertension, Adult kushal - Hypertension, Adult, [id number] kushal - How to Take Your Blood Pressure, Odya-ge-Syth kushal - Aspirin and Your Heart kushal - Managing Your Hypertension kushal Forms: - Medication Reconciliation Form kushal - SBAR form kushal Critical care time excluding procedures: 00:35 Critical care time: Bedside Care: 30 minutes, Consultation: 20 minutes, Family kushal Intervention: 20 minutes. Total time: 70 minutes Signatures: Dispatcher [employer] EDMS Hardy Vickers MD MD cha Bryson, James RN RN jb4 Patricia Cantrell RN RN lg3 Corrections: (The following items were deleted from the chart) 02/03 23:32 23:32 BASIC METABOLIC PANEL+C.LAB.BRZ ordered. EDMS EDMS 23:32 23:32 CBC+H.LAB.BRZ ordered. EDMS EDMS 23:32 23:32 HEPATIC FUNCTION+C.LAB.BRZ ordered. EDMS EDMS 23:32 23:32 MAGNESIUM+C.LAB.BRZ ordered. EDMS EDMS 23:32 PROBNP+C.LAB.BRZ ordered. [facility] : 23:32 PROTIME (+INR)+COAG.LAB.BRZ ordered. [facility] 23:32 Troponin High Sensitivity+C.LAB.BRZ ordered. [facility] : 23:32 UA Rfx Georges Cult if indicated+U.LAB.BRZ ordered. [facility] 23:32 Chest Single View+RAD.RAD.BRZ ordered. [facility] :49 23:34 The patient has shortness of breath during emotionally upset, [facility] :49 23:34 Onset: The symptoms/episode began/occurred just prior to arrival, today, [facility] :49 23:34 Duration: The symptoms are intermittent, with no pattern, [facility] :49 23:34 The patient's shortness of breath is aggravated by nothing, is alleviated by [facility] nothing, [facility] :49 23:34 NO CP. [facility] :49 23:34 Associated signs and symptoms: Pertinent positives: non-productive cough, [facility] :49 23:34 Severity of symptoms: At their worst the symptoms were mild just prior to [facility] arrival, in the emergency department the symptoms have improved mildly, [facility] :49 23:34 The patient has experienced similar episodes in the past, several times, [facility] :49 23:34 Constitutional: Negative for fever, chills, and weight loss, Eyes: Negative for [facility] injury, pain, redness, and discharge, ENT: Negative for injury, pain, and discharge, Neck: Negative for injury, pain, and swelling, Cardiovascular: Negative for chest pain, palpitations, and edema, Abdomen/GI: Negative for abdominal pain, nausea, vomiting, diarrhea, and constipation, Back: Negative for injury and pain, : Negative for injury, bleeding, discharge, and swelling, MS/Extremity: Negative for injury and deformity, Skin: Negative for injury, rash, and discoloration, Neuro: Negative for headache, weakness, numbness, tingling, and seizure, Psych: Negative for depression, anxiety, suicide ideation, homicidal ideation, and hallucinations, Allergy/Immunology: Negative for hives, rash, and allergies, Endocrine: Negative for neck swelling, polydipsia, polyuria, polyphagia, and marked weight changes, Hematologic/Lymphatic: Negative for swollen nodes, abnormal bleeding, and unusual bruising, [facility] 23:49 23:34 Respiratory: Positive for shortness of breath, [facility] 23:49 23:34 MS/extremity: Negative for acute changes, [facility] 23:49 23:34 Constitutional: This is a well developed, well nourished patient who is awake, kushal alert, and in no acute distress. Head/Face: Normocephalic, atraumatic. Eyes: Pupils equal round and reactive to light, extra-ocular motions intact. Lids and lashes normal. Conjunctiva and sclera are non-icteric and not injected. Cornea within normal limits. Periorbital areas with no swelling, redness, or edema. ENT: Nares patent. No nasal discharge, no septal abnormalities noted. Tympanic membranes are normal and external auditory canals are clear. Oropharynx with no redness, swelling, or masses, exudates, or evidence of obstruction, uvula midline. Mucous membranes moist. Neck: Trachea midline, no thyromegaly or masses palpated, and no cervical lymphadenopathy. Supple, full range of motion without nuchal rigidity, or vertebral point tenderness. No Meningismus. Chest/axilla: Normal chest wall appearance and motion. Nontender with no deformity. No lesions are appreciated. Cardiovascular: Regular rate and rhythm with a normal S1 and S2. No gallops, murmurs, or rubs. Normal PMI, no JVD. No pulse deficits. Respiratory: Lungs have equal breath sounds bilaterally, clear to auscultation and percussion. No rales, rhonchi or wheezes noted. No increased work of breathing, no retractions or nasal flaring. Abdomen/GI: Soft, non-tender, with normal bowel sounds. No distension or tympany. No guarding or rebound. No evidence of tenderness throughout. Back: No spinal tenderness. No costovertebral tenderness. Full range of motion. Skin: Warm, dry with normal turgor. Normal color with no rashes, no lesions, and no evidence of cellulitis. MS/ Extremity: Pulses equal, no cyanosis. Neurovascular intact. Full, normal range of motion., bilateral aka Neuro: Awake and alert, GCS 15, oriented to person, place, time, and situation. Cranial nerves II-XII grossly intact. Motor strength 5/5 in all extremities. Sensory grossly intact. Cerebellar exam normal. Normal gait. Psych: Awake, alert, with orientation to person, place and time. Behavior, mood, and affect are within normal limits. [facility] 23:34 ECG was reviewed by the Attending Physician. [facility] 23:34 Musculoskeletal/extremity: DVT Exam: No signs of deep vein thrombosis. no pain, [facility] no swelling, no tenderness, negative Homans' sign noted on exam, no appreciated bluish discoloration, no erythema, no increased warmth, [facility] 02/04 00:02/03 23:34 This 54 yrs old Female presents to ER via Unassigned with [facility] complaints of HIGH BLOOD PRESSURE. [facility] 02/04 00:32 00:18 PTT, ACTIVATED+COAG.LAB.BRZ ordered. EDMS EDMS 00:[address] MAJANO [facility] lg3
[2025-02-04] MEDS ORDERED: NA CHLORIDE 0.9% 1,000 ML ONE (00:45)
[2025-02-04 00:49] LABS: PTT, Activated Partial Thromb 33.2 SECONDS (27.2-37.4)
[2025-02-04 01:20] LABS: Arterial Blood Carboxyhemoglob 2.3 % (0.0-1.5); Blood Gas Inspired Oxygen 90.0 %; Blood Gas Oxyhemoglobin 88.0 % (94.0-97.0); Blood O2 Saturation 88.3 % (92.0-98.5)
[2025-02-04 01:32] LABS: Influenza A Ag Negative; Influenza B Ag Negative; SARS-CoV-2 Antigen Rapid Res Negative (Negative)
[2025-02-04 02:08] LABS: Differential Total Cells Count 100; Segmented Neutrophils 14 % (40-80)
[2025-02-04 02:09] LABS: Blood Morphology Comment NOT SEEN (NOT SEEN)
--- NOTE | 2025-02-04 05:37 | RAD REPORT ---
EXAM DESCRIPTION: Chest Single View CLINICAL HISTORY: 4 years Female, COUGH Comparison: Chest radiograph dated 12/16/2023 IMPRESSION: Focal consolidation in the left mid and lower lung zones concerning for pneumonia. Left pleural effusion. No pneumothorax. Cardiomediastinal silhouette is not well evaluated. No acute osseous abnormality. Electronically signed by: Sandip Still DO 02/04/2025 12:09 AM CDT RP 9 Due to temporary technical issues with the PACS/[employer] reporting system, reports are being cj d by the in-house radiologist without review as a courtesy to ensure prompt reporting the interpreting radiologist is fully responsible for the content of the report. Transcribed Date/Time: 02/04/2025 5:37 AM
[2025-02-04 06:35] VITALS: BP 102/66; TEMP 99.6; O2SAT 100
== END 2025-02-04 01:31 | disposition short-term general hospital (02) ==
LOC: ER 23:08
DX: J15.8 Pneumonia due to other specified bacteria (principal); R65.21 Severe sepsis with septic shock; J44.1 Chronic obstructive pulmonary disease with (acute) exacerbation; N17.9 Acute kidney failure, unspecified; D72.829 Elevated white blood cell count, unspecified; Z11.52 Encounter for screening for COVID-19
CPT/HCPCS: 36415; 71045; 80048; 80076; 82805; 83605; 83735; 83880; 84484; 85025; 85610; 85730; 87040; 87205; 87428; 93005; J2919; J3370; J7030; J7050; J7614; J7644